=== PATIENT | male | born 1980 | race Two or more races ===

== ENCOUNTER 2024-06-24 08:54 | Inpatient (IN) | payer MEDICAID, SELFPAY ==
[2024-06-24] VITALS (9 sets, daily range): BP systolic 116–144; BP diastolic 71–89; PULSE 56–84; RESP 12–18; TEMP 36.6–37.2; O2SAT 98–100; BMI 24.1
--- NOTE | 2024-06-24 09:12 | PD.EDRME ---
Rapid Medical Screening Exam RME Arrival date/time: 06/24/24 08:54 Chief Complaint: Urogenital-Male RME Narrative: 44-year-old patient presents emergency department with complaint of black stool for the past 2 days. Patient attest to a history of alcohol use. Patient states he drinks about 20 cans of beer daily. Patient appears jaundiced. Patient currently denies any abdominal pain.
--- NOTE | 2024-06-24 09:13 | XR_ITS ---
Examination: CT abdomen with intravenous contrast CT pelvis with intravenous contrast 2-D coronal reconstructions 2-D sagittal reconstructions Date and time of exam:June 24, 2024 1050 hrs. Indications: Rectal bleeding lower pelvic pain beginning 3 days ago. CTDI: vol (mGy) 7.01 DLP: (mGycm) 370 Technique: Multiple axial sections of the abdomen and pelvis have been obtained. 64 slice high-resolution scanner used. 3 mm axial sections have been obtained, post intravenous injection 60 cc [id number] 2-D sagittal, coronal reconstructions obtained. Low dose protocols were performed. One or more of the following dose reduction techniques were used; automated exposure control, adjustment of the mA and/or KV according to patient size, use of iterative reconstruction technique. Findings: Diffuse fatty liver No gallstones Spleen not enlarged No pancreatic or adrenal mass No renal or ureteral calculi, no hydronephrosis Normal appendix No bowel obstruction Wall thickening involving the descending colon and sigmoid colon and rectum No prostatomegaly Minimal thickening of the urinary bladder wall The osseous structures are intact Impression: Significant colitis involving descending colon and sigmoid colon and rectum, consider ulcerative colitis, Crohn's disease, including proctitis pattern Normal appendix
--- NOTE | 2024-06-24 10:00 | PC.NURSE ---
Pt reports that he has been having black stools for a few days, today however he has had multiple red/bloody stools. Reports he drinks about 20 12oz beers a day, denies any previous withdrawals. Reports that his last drink was 3 days ago, pt does not currently have any withdrawl symptoms at this time. Does say that he has little abdominal pain. family at bedside attentive to pt, call davis in reach.
[2024-06-24 10:02] LABS: Basophils % (Auto) 1 % (0-2.5); Eosinophils # (Auto) 0.1 Thou/mm3 (0.0-0.5); Eosinophils % (Auto) 1 % (0-10); Hemoglobin 12.3 g/dL (13.5-16.0); Immature Granulocytes % (Auto) 0 % (0-0); Immature Granulocytes Auto 0.01 Thou/mm3 (0.00-0.00); Lymphocytes # (Auto) 1.3 Thou/mm3 (1.0-4.8); Lymphocytes % (Auto) 23 % (10-50); Mean Corpuscular HGB Conc 34.2 g/dl (31.0-37.0); Mean Corpuscular Hemoglobin 30.7 pg (25.0-35.0); Mean Corpuscular Volume 90 fL (80-100); Monocytes # (Auto) 0.5 Thou/mm3 (0.0-0.8); Monocytes % (Auto) 9 % (0-12); Neutrophils # (Auto) 3.8 Thou/mm3 (1.8-7.7); Neutrophils % (Auto) 66 % (37-80); Nucleated Red Blood Cell % 0 /100 WBC (0); Platelet Count 170 Thou/mm3 (140-440); RDW Standard Deviation 39.3 fL (35.1-43.9); Red Blood Count 4.01 Miln/mm3 (4.50-5.90); White Blood Count 5.8 Thou/mm3 (3.8-10.6)
--- NOTE | 2024-06-24 10:10 | PD.EDGIBLD ---
ED GI Bleed RME/HPI General Chief complaint: Urogenital-Male Stated complaint: Rectal Bleeding x 3 days Arrival date/time: 06/24/24 08:54 RME / HPI RME / HPI Narrative: 44-year-old patient presents emergency department with complaint of black stool for the past 2 days. Patient attest to a history of alcohol use. Patient states he drinks about 20 cans of beer daily. Patient appears jaundiced. Patient currently denies any abdominal pain. DR. HIRSCH MAIN ED EVALUATION: 44 year old male presents to the Emergency Department with complaints of black stools and a lot of red rectal bleeding as well. Symptoms are moderate. Associated symptoms include abdominal pain. He states he had similar symptoms 3 years ago, rectal bleed. Alcoholism, states in last 2-3 weeks he has been drinking 20 beers of 12oz per day. Related Data Allergies Allergy/AdvReac Type Severity Reaction Status Date / Time No Known Allergies Allergy Verified 06/24/24 08:56 Review of Systems Review of Systems Systems Reviewed: All systems reviewed, normal except as documented Narrative Review of Systems: GEN: No fever, no chills, no weight loss EYES: No discharge, no visual changes, no pain HEENT: No ear pain, no congestion, no sore throat PULM: No shortness of breath, no cough, no congestion CV: No chest pain, no dyspnea on exertion, no palpitations GI: No nausea, no vomiting, no diarrhea, + abdominal pain pain, no constipation; + black stools and a lot of red rectal bleeding : No frequency, no urgency and no dysuria MUSC/SKEL: No joint pain, no back pain SKIN: No rash PSYCH: No hallucinations, no depression HEME/LYMPH: No easy bleeding or bruising tendencies NEURO: No weakness, no headache Past Medical History Past Medical History CARDIAC: Negative Cardiac Disorders RESPIRATORY: Negative Asthma GENITOURINARY: Negative Renal Disease ENDOCRINE: Negative Diabetes Mellitus Type 2 HEMATOLOGIC: Negative Sickle Cell Disease Social History SMOKING STATUS: Never smoker SUBSTANCE USE: does not use ALCOHOL: Current ED Exam Narrative Physical exam: GENERAL APPEARANCE: Well hydrated, well nourished. Jaundice. VITALS: All vitals were reviewed and the pulse ox is 99% on room air which is normal according to my interpretation. HEENT: Normocephalic, atramatic, EOMI, EACs are patent. There is no bulge or retraction. Throat without erythema or exudate. Moist oromucosa. No jaundice NECK: Supple, no JVD or bruits. CARDIOVASCULAR: Heart regular without S3-S4 or murmur. No rubs or gallops. LUNGS/CHEST: Clear to auscultation bilaterally. No rales, rhonchi, or wheezing. Normal inspection. ABDOMEN: Patient has minimal discomfort in the epigastric area. Normal bowel sounds. No pulsatile masses. No rebound, rigidity, or guarding. No incarcerated hernia. RECTAL: Rectal exam, nurse financial services professional present at bedside, shows dark stools, guaiac positive. : Not examined. Urine is a tea color. EXTREMITIES: No edema, clubbing, or cyanosis. Intact CSM. Normal inspection and palpation. SKIN: Warm and dry without rashes. Jaundice. MUSCULOSKELETAL: No gross deformity, full ROM all extremities. Normal inspection. NEURO: Alert and oriented x3. Cranial nerves II through XII grossly intact. There are no other motor or sensory deficits noted. PSYCHIATRIC: Normal mood and affect. No psychosis. Course Quality Measures none Orders Category Date Time Status CT Screening NOW Care 06/24/24 09:14 Active Consult to Gastroenterology Stat Cons 06/24/24 15:[address] abdomen pelvis w con Stat Exams 06/24/24 09:13 Completed ABO/RH Type Stat Lab 06/24/24 09:25 Completed CBC Stat Lab 06/24/24 09:25 Completed Comprehensive Metabolic Panel Stat Lab 06/24/24 09:25 Completed Lipase Stat Lab 06/24/24 09:25 Completed PT [Prothrombin Time with INR] Stat Lab 06/24/24 09:25 Completed Urinalysis, C/S if Indicated Stat Lab 06/24/24 10:25 Completed Octreotide Acet Inj [SandoSTATIN Inj] Med 06/24/24 15:00 Discontinued 50 mcg IV X1 ONE Sodium Chloride 0.9% 1000 ml [Ns] 1,000 ml Med 06/24/24 09:14 Discontinued IV 999 mls/hr Sodium Chloride 0.9% [Ns] 100 ml Med 06/24/24 15:01 Active Octreotide Acet Inj [SandoSTATIN Inj] 1,000 mcg IV 50 mcg/hr Vital Signs Vital signs: Vital Signs Temperature 98.7 F 06/24/24 09:17 Pulse Rate 67 06/24/24 09:17 Respiratory Rate 16 06/24/24 09:17 Blood Pressure 116/76 06/24/24 09:17 Pulse Oximetry (%) 99 06/24/24 09:17 Oxygen Delivery Method Room Air 06/24/24 09:17 GI Bleed MDM Narrative MDM Narrative:: I, Tamara Mclain, am scribing for and in the presence of Dr. Hirsch. Patient is a very poor historian. What we got out of him is the story that he has been having black stool along with red blood cells. He said that he is mixing between red and black. Rectal examination was done at the presence of his nurse showing black stool guaiac was positive. CMP and lipase are negative. Liver functioning tests are elevated most likely secondary to alcoholism.. Pro time is negative. CT abdomen and pelvic was done and was read by Dr. Kulwant Cochran showing significant colitis. Please see his note. I did have a chance to review and interpret the CT as follow: No free air. No free fluid. No dilated loops of bowel gas. No evidence of obstruction. Thickened distal colon wall. 3 PM, I spoke to and discussed with Dr. Mendoza, GI specialist on-call. He recommended octreotide, clear liquid diet. He will continue to consult. 3:50 PM, I spoke to , resident of , hospitalist on-call. He agreed to assess to admit the patient for further evaluation and treatment. Patient data External records reviewed:: None (no previous visits) Clinical information provided by:: patient Social determinants that could affect healthcare access:: alcohol use Patient has the following chronic illnesses:: Alcoholism, states in last 2-3 weeks he has been drinking 20 beers of 12oz per day. Denies any surgeries, daily medications, or known allergies. How is presenting disease/condition affected by chronic disease/condition?: exacerbated by Evaluation data The following diagnostics were reviewed and interpreted by me:: lab results and radiology exam(s) Lab and/or radiology exams considered but not ordered:: none Interpretation Summary: See above under MDM narrative. RADIOLOGY Procedure(s): CT abdomen pelvis w con Accession Number(s): [id number] cc: Kulwant Cochran MD; NO PRIMARY/FAMILY,PHYSICIAN; Madelaine Randolph PA-C~ Examination: CT abdomen with intravenous contrast CT pelvis with intravenous contrast 2-D coronal reconstructions 2-D sagittal reconstructions Date and time of exam:June 24, 2024 1050 hrs. Indications: Rectal bleeding lower pelvic pain beginning 3 days ago. CTDI: vol (mGy) 7.01 DLP: (mGycm) 370 Technique: Multiple axial sections of the abdomen and pelvis have been obtained. 64 slice high-resolution scanner used. 3 mm axial sections have been obtained, post intravenous injection 60 cc [id number] 2-D sagittal, coronal reconstructions obtained. Low dose protocols were performed. One or more of the following dose reduction techniques were used; automated exposure control, adjustment of the mA and/or KV according to patient size, use of iterative reconstruction technique. Findings: Diffuse fatty liver No gallstones Spleen not enlarged No pancreatic or adrenal mass No renal or ureteral calculi, no hydronephrosis Normal appendix No bowel obstruction Wall thickening involving the descending colon and sigmoid colon and rectum No prostatomegaly Minimal thickening of the urinary bladder wall The osseous structures are intact Impression: Significant colitis involving descending colon and sigmoid colon and rectum, consider ulcerative colitis, Crohn's disease, including proctitis pattern Normal appendix Dictated By: Kulwant Cochran MD Medications / Prescriptions Medications or Prescriptions considered but not ordered:: none Medication administrations:: Medication Administration History Octreotide Acetate 1,000 mcg/ (Sodium Chloride) 102 mls @ 5.1 mls/hr IV .Q20H ONE; Protocol Stop: 06/25/24 11:00 Discontinued Medications Sodium Chloride (Ns) 1,000 mls @ 999 mls/hr IV .Q1H1M ONE Stop: 06/24/24 10:14 Last Infusion: 06/24/24 12:00 Dose: Infused Documented By: Admin: 06/24/24 10:11 Dose: 999 mls/hr Documented By: TRENT Octreotide Acetate (Octreotide Acet Inj 50 Mcg/Ml Vial) 50 mcg IV X1 ONE Stop: 06/24/24 15:01 see above Consultations Consultation(s) initiated? (list below): Yes Consultation #1 (Physician, Specialty, Details): Discussed test HPI, PMHx, lab, radiology results and/or management with Dr. Mendoza. Will consult an admission to the hospitalist. Time: 15:00 Consultation #2 (Physician, Specialty, Details): Discussed test HPI, PMHx, lab, radiology results and/or management with hospitalist. Will admit for further evaluation and management. Accepts patient for admission Time: 15:05 Diagnosis GI bleed differential diagnosis: esophageal varices, Upper gastrointestinal hemorrhage, Lower gastrointestinal hemorrhage, hematochezia and melena Most likely diagnosis given after review of the tests above:: GI bleed History of alcohol heavy consumption Admission Indicated Admission indicated?: indicated Admission Request Was there a request for admission?: Yes Admission Attestation Admission request attestation: Discussed case with [] from Hospitalist service regarding admission. Discussed patients ED course, exam findings, labs, and radiology results. The Hospitalist [agrees,declines] to accept the patient for admission. Disposition Plan Disposition Plan: Admit Discharge Plan Plan Patient Disposition: Admit Acute Care w/in Hospital Disposition Comment: Stable for admit Prescriptions/Referrals Referrals: No Primary/Family,Physician [Primary Care Provider] - In 1 week Problem List Clinical Impression: GI bleed, Alcoholism Patient/Caregiver Discharge Instructions Print Language: Tristanian Stand Alone Forms: Carlita Award Info., Patient Portal Info Letter
[2024-06-24] MEDS: SODIUM CHLORIDE 0.9% 1000 ML 1,000 ML 999 ML IV (10:11)
[2024-06-24 10:18] LABS: Alanine Aminotransferase 113 U/L (10-49); Albumin, Serum 4.8 gm/dL (3.5-5.0); Albumin/Globulin Ratio 1.7 (1.2-2.2); Alkaline Phosphatase 104 U/L (46-116); Anion Gap 9 (7-16); Aspartate Amino Transferase 163 U/L (0-34); BUN/Creatinine Ratio 30 Ratio (12-20); Bilirubin,Total 3.1 mg/dL (0.3-1.2); Blood Urea Nitrogen 18 mg/dL (9-23); Calcium 9.4 mg/dL (8.3-10.6); Calcium (Corrected) 9.4 mg/dL (8.5-10.1); Carbon Dioxide 26.9 mMol/L (20.0-31.0); Chloride 100 mMol/L (98-107); Creatinine (Component) 0.6 mg/dL (0.6-1.3); Estimated Creatinine Clearance 149.9 mL/min (>60); Globulin 2.8 gm/dL (2.3-3.5); Glucose 109 mg/dL (74-106); Lipase 29 U/L (12-53); Osmolality,Calculated 274 (275-295); Potassium 4.3 mMol/L (3.4-5.1); Prothrombin Time 11.4 Seconds (9.0-12.2); Sodium 136 mMol/L (136-145); Total Protein 7.6 gm/dL (5.7-8.2); eGFR > 60 See Note
[2024-06-24 10:37] LABS: Collection Type, Urine Voided
--- NOTE | 2024-06-24 11:26 | PRELIM_ITS ---
CT scan of the abdomen and pelvis with intravenous contrast (axial sections with sagittal and coronal reformats) June 24, 2024 at 1050 hoursClinical History: black tarry stoolsComparison: No prior st udy is available for comparison. ]Findings:Dependent atelectasis is seen at the lung bases.Fatty infi ltration of the liver is noted. The gallbladder, pancreas, spleen, kidneys and adrenals are unremarka ble.No evidence of bowel obstruction. The appendix is within normal limits (axial images 130-150/250) . There is mildly thickened/edematous colon, predominantly the descending and sigmoid colon with mura l enhancement and adjacent fat stranding.The urinary bladder is incompletely distended at the time of the examination. There is no free fluid, free air or abscess. The aorta demonstrates mild atheromat ous changes.Mild degenerative changes are identified in the spine. Impression:1. Findings are of conc renaldo for colitis of the left hemicolon, which may be of inflammatory or infectious etiology. Recommend clinical correlation and follow-up. 2. Other findings as described above. Report Electronically Sig rebecca By: Tiffanie Kee 06/24/2024 11:25:26 AM [EST]
[2024-06-24 11:42] LABS: Bilirubin,Urine Negative (Negative); Blood,Urine Negative (Negative); Clarity,Urine Clear (Clear/Hazy); Color,Urine Yellow (Lt Yel-Yel); Culture Indicated,Urine Not Indicated; Glucose, Urine Negative (Negative); Ketones,Urine Trace (Negative); Leukocyte Esterase,Urine Negative (Negative); Nitrite,Urine Negative (Negative); PH,Urine 6.5 (5.0-7.0); Protein,Urine Negative (Neg - Trace); RBC,Urine 2 /hpf (0-3); Specific Gravity,Urine 1.025 (1.001-1.035); Squamous Epithelial Cell,Urine < 1 /hpf (0-5); Urobilinogen,Urine Negative mg/dL (0.0-1.0); WBC,Urine < 1 /hpf (0-5)
--- NOTE | 2024-06-24 16:19 | XR_ITS ---
Examination: Abdomen sonogram, Limited Date and time of exam: June 24, 2024 1707 hrs. Indications: Epigastric pain rectal bleeding beginning 3 days ago Technique: Real-time blackwood scale transabdominal sonographic images of the upper abdomen obtained. Findings: Negative for gallstones Gallbladder wall 0.49 cm Common bile duct 0.5 cm no stones Pancreas obscured by bowel gas Liver 14.8 CM fatty infiltration irregular contour no focal liver lesions Normal hepatopedal portal venous flow Patent IVC Impression: Negative for gallstones Thickened gallbladder wall, suggest HIDA scan or MRCP follow-up to exclude cholecystitis
[2024-06-24] MEDS: OCTREOTIDE ACET INJ 50 mCg/ML VIAL IV (16:23)
[2024-06-24] MEDS: OCTREOTIDE ACET INJ 1,000 MCG in SODIUM CHLORIDE 0.9% 100 ML 5.1 MCG IV (16:24)
--- NOTE | 2024-06-24 16:31 | ESHP_ITS ---
Documentation for date of: 06/24/24 HPI History of Present Illness Chief complaint: Dark tarry stool History of present illness: 44 y/o M without significant PMHx presented to ED with chief complaint of dark tarry stools x 3 days. Patient also notes occasional red rectal bleeding. Patient had similar symptoms 1 year ago in [place], received an EGD at that time which showed ulcers. Patient notes that for the past 3 weeks he has been drinking 20 beers daily. States last drink was Tuesday. Denies chest pain, shortness of breath, nausea, vomiting, weakness. Endorses poor p.o. intake due to abdominal discomfort. ED COURSE: Labs significant for: Hemoglobin 12.3, T. bili 2.1, AST 163, ALT 113, ALP 104. Imaging significant for: CT showing significant colitis of the descending, sigmoid, rectum. Fatty liver. Patient received 1 L bolus normal saline and started on octreotide drip in the ED. Vital signs stable. PMH: None PSH: None SH: Endorses frequent alcohol use. Denies tobacco or illicit drug use. Allergies:?None Medications: None Review of Systems Review of Systems Systems Reviewed: All systems reviewed, normal except as documented Past Medical History Past Medical History Comments PMH COMMENT: PMH: None PSH: None SH: Endorses frequent alcohol use. Denies tobacco or illicit drug use. Allergies:?None Medications: None Exam Vital Signs Temp Pulse Resp BP Pulse Ox O2 Del Method 98.3 F 84 18 120/82 100 Room Air 06/24/24 14:28 06/24/24 16:06 06/24/24 16:06 06/24/24 16:06 06/24/24 16:06 06/24/24 16:06 Narrative Exam PE: Gen: Well-developed and well-nourished. HEENT: NCAT, PERRLA, EOMI, MMM. Scleral icterus. CVS: normal S1 and S2. RRR. No M/R/G. Resp: CTA B/L. No rhonchi, rales, crackles or wheezing. Abd: Mild abdominal distention, diffuse abdominal tenderness worse in epigastric region and left side. No fluid wave. MSK: Good ROM in BUE & BLE. No edema or rash. Neuro: CN II-XII grossly intact. Strength 5/5 in BUE & BLE. Alert and oriented x3. Psych: appropriate mood and affect. Results: Labs 06/24/24 09:25 06/24/24 09:25 Labs: Short CBC 06/24/24 Range/Units 09:25 WBC 5.8 (3.8-10.6) Thou/mm3 Hgb 12.3 L (13.5-16.0) g/dL Hct 36.0 L (41.0-53.0) % Plt Count 170 (140-440) Thou/mm3 BMP 06/24/24 09:25 Sodium 136 Potassium 4.3 Chloride 100 Carbon Dioxide 26.9 BUN 18 Creatinine 0.6 Glucose 109 H Calcium 9.4 Liver Function 06/24/24 Range/Units 09:25 Total Bilirubin 3.1 H (0.3-1.2) mg/dL AST 163 H (0-34) U/L ALT 113 H (10-49) U/L Alkaline Phosphatase 104 (46-116) U/L Albumin 4.8 (3.5-5.0) gm/dL Urine 06/24/24 Range/Units 10:25 Urine Color Yellow (Lt Yel-Yel) Urine Clarity Clear (Clear/Hazy) Urine pH 6.5 (5.0-7.0) Ur Specific [place] 1.025 (1.001-1.035) Urine Protein Negative (Neg - Trace) Urine Glucose (UA) Negative (Negative) Quality Measures Quality Measures VTE prophylaxis Medications Home Medications and Allergies Allergies Allergy/AdvReac Type Severity Reaction Status Date / Time No Known Allergies Allergy Verified 06/24/24 08:56 Visit Medications Acetaminophen (Acetaminophen 325 Mg Tablet) 650 mg PO Q6H PRN PRN Reason: Fever >101.5 Stop: 07/24/24 16:18 Hydrocodone Bitart/Acetaminophen (Hydrocodone/Apap 5/325 Tablet) 1 tab PO Q4HR PRN PRN Reason: PAIN SCALE 4-10(Mod-Sev Stop: 06/29/24 16:18 Octreotide Acetate 1,000 mcg/ (Sodium Chloride) 102 mls @ 5.1 mls/hr IV .Q20H ONE; Protocol Stop: 06/25/24 11:00 Last Admin: 06/24/24 16:24 Dose: 50 mcg/hr, 5.1 mls/hr Ondansetron HCl (Ondansetron Inj 2 Mg/Ml Inj 2 Ml) 4 mg IV Q6H PRN; Protocol PRN Reason: NAUSEA OR VOMITING Stop: 07/24/24 16:18 Pantoprazole Sodium (Pantoprazole Inj 40 Mg Vial) 40 mg IVP Q12HR KEAGAN Stop: 07/24/24 20:59 Discontinued Medications Sodium Chloride (Ns) 1,000 mls @ 999 mls/hr IV .Q1H1M ONE Stop: 06/24/24 10:14 Last Infusion: 06/24/24 12:00 Dose: Infused Octreotide Acetate (Octreotide Acet Inj 50 Mcg/Ml Vial) 50 mcg IV X1 ONE Stop: 06/24/24 15:01 Last Admin: 06/24/24 16:23 Dose: 50 mcg Assessment & Plan Plan 44 y/o M without significant PMHx presented to ED with chief complaint of dark tarry stools x 3 days, admitted for GI bleed. #GI bleed Patient arrived with chief complaint dark tarry stools for 3 days. Notes heavy alcohol use for past 3 weeks. Had similar symptoms in the past, EGD at the time showed gastric ulcers. Hemoglobin 12.3. -GI consulted, follow-up -Octreotide drip -Protonix 40 mg IV twice daily -Monitor hemoglobin closely -Tylenol and [place] as needed for pain -Zofran as needed for nausea #Alcohol use disorder #Transaminitis Patient has had 20 beers daily for the past 3 weeks. Reports last drink was on Tuesday. Exam showed scleral icterus. CT showed fatty liver. Patient elevated LFTs: T. bili 3.1, AST was 63, ALT 113. -Liver ultrasound pending, follow-up -[facility] protocol -Serum alcohol level pending -Monitor LFTs -Psychology Lecturer regarding alcohol cessation DVT prophylaxis: SCDs GI prophylaxis: Protonix Diet: N.p.o. pending GI consult Lines: Peripheral IV Code status: Full code Plan of care discussed with senior resident Dr. Booker PGY-[address] Carlo Robert MD PGY-1 Senior Resident Attestation: I discussed with and supervised the director internal audit physician involved in the care of this patient. I personally saw and examined the patient and discussed the assessment and plan with the entire medicine team, including my attending. I agree with the assessment and plan as documented above. 44-year-old male with no significant past medical history presented to the emergency department due to melena after 3 days. Patient has history of alcohol use disorder. Last known alcohol drink was 4 days ago. For the past 3 days patient has had multiple episodes of dark stools with bright red blood to it. Patient had a similar episode a year ago in [place] which is patient got an EGD and was told he had ulcers. Patient has not follow-up with any primary care doctor or GI specialist ever since. Patient works in the [employer]. Vitals, labs and imaging were reviewed. Patient will be admitted for suspected upper GI bleed we are going to start octreotide drip, Protonix were going to trend hemoglobin. Gastroenterology has been consulted. Patient also has a history of alcohol use we are going to start CIWA protocol. - Patient's care was discussed with my attending physician. Parveen Booker MD Internal Medicine PGY-3 Attending Provider Attestation/Addendum I attest that I was physically present for the evaluation, physical examination, lab and imaging review of the patient with the residents. I discussed the case with the residents and agree with the findings and plans of care as documented above. Patient is a 44 years old male with history of possible gastric ulcers and upper GI bleeding who presented to the ED with complaint of black tarry stool. Patient has a history of alcohol abuse, and has been drinking very heavily for the last few days. He had multiple episodes of dark stool with occasional bright red blood. He also admitted to an episode of coffee-ground emesis. Patient underwent EGD and [place] for similar episodes, 1 year back but has not been following his doctors. GI consulted by ED, recommended inpatient admission for GI bleeding workup and management. We will start patient on octreotide drip, IV Protonix, CIWA protocol for alcohol withdrawal. Hemoglobin level is currently stable, we will continue to trend. Starr Matos MD
[2024-06-24 17:09] LABS: Alcohol, Blood Medical < 3.0 mg/dL (0-10.0)
--- NOTE | 2024-06-24 19:34 | PD.IMCONS ---
HPI Data of Consult Requesting Physician: Starr Matos MD Primary Care Provider: Physician No Primary/Family Consult Narrative Reason for consult: Melena, hematochezia, abnormal CT AP History of present illness: 44 years old male who has a longstanding history of alcohol abuse primarily about 20 beers a day presented to the emergency room with 2 to 3-day history of melena as well as hematochezia Presenting WBC count was 5.8 hemoglobin hematocrit 12.3 and 36.0 Total bilirubin 3.1 AST ALT 163 and 113 alk phos of 104 CT scan of the abdomen pelvis done with contrast showed fatty liver inflammatory changes in the region of descending colon sigmoid colon and rectum Gallbladder ultrasound shows no gallstones thickened gallbladder wall and fatty liver cc:: cc: Starr Matos MD Review of Systems Review of Systems Systems Reviewed: All systems reviewed, normal except as documented Past Medical History Surgical History OTHER SURGICAL HX: As in the history of present illness Meds Home Medications and Allergies Allergies Allergy/AdvReac Type Severity Reaction Status Date / Time No Known Allergies Allergy Verified 06/24/24 08:56 Exam Vital Signs Temp Pulse Resp BP Pulse Ox O2 Del Method 98.9 F 62 18 140/83 H 100 Room Air 06/24/24 18:29 06/24/24 18:29 06/24/24 18:29 06/24/24 18:29 06/24/24 18:29 06/24/24 18:29 Constitutional Comments: Chronically ill-appearing Routine Respiratory Exam Comments: Normal to auscultation Routine Abdominal Exam Comments: Nontender positive bowel sounds Results Labs 06/24/24 09:25 06/24/24 09:25 Labs: Short CBC 06/24/24 Range/Units 09:25 WBC 5.8 (3.8-10.6) Thou/mm3 Hgb 12.3 L (13.5-16.0) g/dL Hct 36.0 L (41.0-53.0) % Plt Count 170 (140-440) Thou/mm3 BMP 06/24/24 09:25 Sodium 136 Potassium 4.3 Chloride 100 Carbon Dioxide 26.9 BUN 18 Creatinine 0.6 Glucose 109 H Calcium 9.4 Liver Function 06/24/24 Range/Units 09:25 Total Bilirubin 3.1 H (0.3-1.2) mg/dL AST 163 H (0-34) U/L ALT 113 H (10-49) U/L Alkaline Phosphatase 104 (46-116) U/L Albumin 4.8 (3.5-5.0) gm/dL Urine 06/24/24 Range/Units 10:25 Urine Color Yellow (Lt Yel-Yel) Urine Clarity Clear (Clear/Hazy) Urine pH 6.5 (5.0-7.0) Ur Specific [place] 1.025 (1.001-1.035) Urine Protein Negative (Neg - Trace) Urine Glucose (UA) Negative (Negative) Assessment and Plan Additional Assessment & Plan Additional Plan: # Melena # Hematochezia # Abnormal CT scan of the abdomen pelvis showing inflammatory changes in the region of descending colon sigmoid colon and rectum # Abnormal liver functions are secondary to alcohol-related liver disease and fatty liver Plan Case discussed with the Emergency room physician Octreotide infusion at 50 mcg/h after loading dose of 50 mcg IV Protonix 40 mg every 12 hours N.p.o. midnight tonight Serial CBC Fiberoptic esophagogastroduodenoscopy with possible therapeutic intervention possible biopsy under intravenous moderate sedation tentatively scheduled for tomorrow Because of the CT scan abnormalities patient will also need a fibrotic colonoscopy prior to discharge to rule out any evidence of inflammatory bowel disease or ischemic colitis Thank you once again for the opportunity to participate in the care of this patient
[2024-06-24] MEDS: PANTOPRAZOLE INJ 40 MG VIAL IVP (20:39)
[2024-06-24] MEDS: FOLIC ACID 1 MG TABLET PO (20:39)
[2024-06-24] MEDS: THIAMINE 100 MG TABLET PO (20:39)
[2024-06-24 21:22] LABS: Hematocrit 32.5 % (41.0-53.0); Hemoglobin 11.4 g/dL (13.5-16.0)
[2024-06-25] VITALS (16 sets, daily range): BP systolic 93–141; BP diastolic 51–95; PULSE 56–112; RESP 12–20; TEMP 36.3–36.8; O2SAT 96–100
[2024-06-25 05:47] LABS: Basophils # (Auto) 0.1 Thou/mm3 (0.0-0.2); Basophils % (Auto) 1 % (0-2.5); Eosinophils # (Auto) 0.2 Thou/mm3 (0.0-0.5); Eosinophils % (Auto) 4 % (0-10); Hematocrit 30.5 % (41.0-53.0); Hemoglobin 10.4 g/dL (13.5-16.0); Immature Granulocytes % (Auto) 0 % (0-0); Immature Granulocytes Auto 0.01 Thou/mm3 (0.00-0.00); Lymphocytes # (Auto) 1.6 Thou/mm3 (1.0-4.8); Lymphocytes % (Auto) 32 % (10-50); Mean Corpuscular HGB Conc 34.1 g/dl (31.0-37.0); Mean Corpuscular Hemoglobin 30.5 pg (25.0-35.0); Mean Corpuscular Volume 89 fL (80-100); Monocytes # (Auto) 0.5 Thou/mm3 (0.0-0.8); Monocytes % (Auto) 9 % (0-12); Neutrophils # (Auto) 2.7 Thou/mm3 (1.8-7.7); Neutrophils % (Auto) 54 % (37-80); Nucleated Red Blood Cell % 0 /100 WBC (0); Platelet Count 192 Thou/mm3 (140-440); RDW Standard Deviation 38.5 fL (35.1-43.9); Red Blood Count 3.41 Miln/mm3 (4.50-5.90); White Blood Count 5.1 Thou/mm3 (3.8-10.6)
[2024-06-25 06:32] LABS: Alanine Aminotransferase 98 U/L (10-49); Albumin, Serum 4.3 gm/dL (3.5-5.0); Albumin/Globulin Ratio 1.7 (1.2-2.2); Alkaline Phosphatase 84 U/L (46-116); Anion Gap 9 (7-16); Aspartate Amino Transferase 155 U/L (0-34); BUN/Creatinine Ratio 11 Ratio (12-20); Bilirubin,Total 2.3 mg/dL (0.3-1.2); Blood Urea Nitrogen 8 mg/dL (9-23); Calcium 9.2 mg/dL (8.3-10.6); Calcium (Corrected) 9.2 mg/dL (8.5-10.1); Carbon Dioxide 26.7 mMol/L (20.0-31.0); Cardiac Risk Estimate 2.9 RATIO (4.0-6.7); Chloride 99 mMol/L (98-107); Cholesterol 152 mg/dL (132-200); Creatinine (Component) 0.7 mg/dL (0.6-1.3); Estimated Creatinine Clearance 128.5 mL/min (>60); Globulin 2.6 gm/dL (2.3-3.5); Glucose 116 mg/dL (74-106); HDL Cholesterol 53 mg/dL (40-60); LDL Cholesterol,Calculated 80 mg/dL (0-130); Osmolality,Calculated 269 (275-295); Sodium 135 mMol/L (136-145); Thyroid Stimulating Hormone 1.63 uIU/mL (0.55-4.78); Total Protein 6.9 gm/dL (5.7-8.2); Triglycerides 97 mg/dL (30-150); eGFR > 60 See Note
[2024-06-25 07:15] LABS: Glucose Estimated Average 100 mg/dL (80-131); Hemoglobin A1C 5.1 % Hgb (4.8-6.0)
[2024-06-25] MEDS: PANTOPRAZOLE INJ 40 MG VIAL IVP (09:14)
--- NOTE | 2024-06-25 12:06 | PC.SS ---
Eduardo Regina a 44-year-old male admitted to NH for GI Bleed. SS conducted bedside contact with the patient to complete initial assessment and to discuss discharge planning, pt dtr translated on pt behalf. Patient confirmed demographic information. Patient identifies Brit Tovar [phone] as his surrogate decision maker. Patient resides at home with family. Pt he is able to complete all ADL?s independently, no need for any source of DME. Pt reports going to the [facility] for needs when needed but has not have been in over one year. DC options discussed pt wishes to return home. Pts family will provide transportation upon DC. No further intervention required at this time, social science professor would be available to address any further concerns.
--- NOTE | 2024-06-25 12:34 | PC.SS ---
Rounding: Pending EGD and Colonoscopy
--- NOTE | 2024-06-25 14:48 | SUR.PHASEI ---
pt received from OR in recovery bay 5. pt asleep but responds to voice, breathing unlabored on room air. v/s stable. report received from Tasia TEJEDA.
--- NOTE | 2024-06-25 15:30 | SUR.PHASEI ---
pt awake and alert, breathing unlabored on room air. v/s stable. report called to Aleta Alonso. pt will be transferred to room at this time.
--- NOTE | 2024-06-25 15:53 | ESPR_ITS ---
<Statement entered by Harvinder Tanner MD - 06/25/24 16:44> Patient was seen and examined at the bedside. Patient's OPERATOR/ASSISTANT FOREMAN reported that patient was dizzy while going to the restroom therefore PT evaluation was ordered. PT reported that patient appears to be working independently and recommended no further assistance required. GI specialist performed EGD which showed Haley-Becker tear with profound blood and recommended to keep close monitoring of H&H as the patient might need blood transfusion. Patient is also on [facility] protocol for alcohol withdrawal. Will likely follow-up with H&H at midnight as well. LFTs are downtrending. Hemoglobin currently at 10.4. Type and screen was ordered and 1 unit PRBCs prepared and will be administered as needed if hemoglobin drops below 7. No plans for colonoscopy per GI specialist. All labs and orders were reviewed. I saw and examined the patient, and I agree with current management stated by Dr Yesica MD,PGY1. Plan of care was discussed with the attending physician and resident physician. Disclaimer: Despite multiple revisions, due to the dictation software being used, the document bellow may not be free of grammatical errors including phonetic/typographic errors. However, this does not deter from our commitment to providing health care in the patient's best interest in mind. Dr. Ciro MD, PGY 2 Documentation for date of: 06/25/24 Subjective Subjective Interval history: No overnight events. Patient seen and examined at bedside. S/P EGD which showed Haley-Becker tear with significant blood pooling. Patient denies abdominal tenderness, chest pain, SOB, nausea. Endorses mild weakness. Will closely monitor H&H. Exam Vital Signs Temp Pulse Resp BP Pulse Ox O2 Del Method O2 Flow Rate 97.9 F 67 12 102/63 97 Room Air 3 06/25/24 15:20 06/25/24 15:20 06/25/24 15:20 06/25/24 15:20 06/25/24 15:20 06/25/24 07:56 06/25/24 14:30 Narrative Exam PE: Gen: Well-developed and well-nourished. HEENT: NCAT, PERRLA, EOMI, MMM. Scleral icterus. CVS: normal S1 and S2. RRR. No M/R/G. Resp: CTA B/L. No rhonchi, rales, crackles or wheezing. Abd: Mild abdominal distention, mild diffuse abdominal tenderness. MSK: Good ROM in BUE & BLE. No edema or rash. Neuro: CN II-XII grossly intact. Strength 5/5 in BUE & BLE. Alert and oriented x3. Psych: appropriate mood and affect. Objective Labs 06/25/24 16:37 06/25/24 04:14 Labs: Laboratory Results - last 24 hr 06/24/24 06/24/24 06/25/24 09:25 20:59 04:14 WBC 5.1 RBC 3.41 L Hgb 11.4 L 10.4 L Hct 32.5 L 30.5 L MCV 89 MCH 30.5 MCHC 34.1 RDW Std Deviation 38.5 Plt Count 192 Neut % (Auto) 54 Lymph % (Auto) 32 [place] % (Auto) 9 Eos % (Auto) 4 Baso % (Auto) 1 Neut # (Auto) 2.7 Lymph # (Auto) 1.6 [place] # (Auto) 0.5 Eos # (Auto) 0.2 Baso # (Auto) 0.1 Immature Gran # (Auto) 0.01 H Absolute Nucleated RBC 0.00 Immature Gran % 0 Nucleated RBC % 0 Sodium 135 L Potassium 4.0 Chloride 99 Carbon Dioxide 26.7 Anion Gap 9 BUN 8 L Creatinine 0.7 Estim Creat Clear Calc 128.5 eGFR > 60 BUN/Creatinine Ratio 11 L Glucose [address] Glu mg/dL 100 Hemoglobin A1c 5.1 Calculated Osmolality 269 L Calcium 9.2 Corrected Calcium 9.2 Total Bilirubin 2.3 H D AST 155 H ALT 98 H Alkaline Phosphatase 84 D Total Protein 6.9 Albumin 4.3 D Globulin 2.6 Albumin/Globulin Ratio 1.7 Triglycerides 97 Cholesterol 152 LDL Cholesterol, Calc 80 HDL Cholesterol 53 Cholesterol/HDL Ratio 2.9 L TSH 1.63 Ethyl Alcohol < 3.0 Blood Type A Positive Antibody Screen NEGATIVE Crossmatch See Detail Blood Bank Wristband ID Yes Quality Measures Quality Measures VTE prophylaxis Assessment & Plan Assessment Current Active Medications: Generic Name Dose Route Start Last Admin Trade Name Freq PRN Reason Stop Dose Admin Acetaminophen 650 mg 06/24/24 16:19 Acetaminophen 325 Mg Tablet PO 07/24/24 16:18 Q6H PRN Fever >101.5 Hydrocodone Bitart/Acetaminophen 1 tab 06/24/24 16:19 Hydrocodone/Apap 5/325 Tablet PO 06/29/24 16:18 Q4HR PRN PAIN SCALE 4-10(Mod-Sev Al Hydrox/Mg Hydrox/Simethicone 15 ml 06/25/24 14:45 Mg Hyd/Al Hyd/Zarina (Maalox Reg) Susp 30 Ml Udc PO 07/25/24 14:44 Q4HR KEAGAN Folic Acid 1 mg 06/24/24 21:00 06/25/24 09:14 Folic Acid 1 Mg Tablet PO 06/29/24 20:59 Not Given BID [facility] Octreotide Acetate 1,000 mcg/ 102 mls @ 5.1 mls/hr 06/25/24 14:45 Sodium Chloride IV 06/30/24 14:39 .Q20H [facility] Protocol 50 MCG/HR Pantoprazole Sodium 80 mg in 100 mls @ 400 mls/hr 06/25/24 15:00 Protonix/Ns 80mg Iv Premix IV 07/25/24 14:59 Q12H [facility] Lorazepam 0.5 mg 06/24/24 16:37 Lorazepam 0.5 Mg Tablet PO 06/29/24 16:36 Q4HR PRN CIWA Score 2-6 Lorazepam 1 mg 06/24/24 16:37 Lorazepam 0.5 Mg Tablet PO 06/29/24 16:36 Q4HR PRN CIWA SCORE 7-11 Lorazepam 2 mg 06/24/24 16:37 Lorazepam 0.5 Mg Tablet PO 06/29/24 16:36 Q4HR PRN CIWA SCORE 12-15 Lorazepam 1 mg 06/24/24 16:37 Lorazepam 2 Mg/Ml Vial IV X1 PRN Breakthrough Agitation Ondansetron HCl 4 mg 06/24/24 16:19 Ondansetron Inj 2 Mg/Ml Inj 2 Ml IV 07/24/24 16:18 Q6H PRN NAUSEA OR VOMITING Protocol Sucralfate 1 gm 06/25/24 17:00 Sucralfate Susp 0.1 Gm/Ml PO 07/25/24 16:59 QID [facility] Thiamine HCl 100 mg 06/24/24 21:00 06/25/24 09:14 Thiamine 100 Mg Tablet PO 06/29/24 20:59 Not Given BID [facility] Plan 44 y/o M without significant PMHx presented to ED with chief complaint of dark tarry stools x 3 days, admitted for GI bleed. #Haley-Becker Tear Patient arrived with chief complaint dark tarry stools for 3 days. Notes heavy alcohol use for past 3 weeks. Had similar symptoms in the past, EGD at the time showed gastric ulcers. Hemoglobin 12.3. EGD performed, showed Haley-Becker tear with significant pooling of blood. -GI consulted, appreciate recs -Octreotide drip -Protonix 80 mg IV twice daily -Maalox suspension -Carafate 1gm PO QID -Monitor hemoglobin closely -Tylenol and [place] as needed for pain -Zofran as needed for nausea #Alcohol use disorder #Transaminitis Patient has had 20 beers daily for the past 3 weeks. Reports last drink was on Tuesday. Exam showed scleral icterus. CT showed fatty liver. Patient elevated LFTs: T. bili 3.1, AST was 63, ALT 113. Liver ultrasound showed fatty liver. Serum alcohol WNL. -[facility] protocol -Monitor LFTs -Linux Administrator regarding alcohol cessation DVT prophylaxis: SCDs GI prophylaxis: Protonix Diet: N.p.o. Lines: Peripheral IV Code status: Full code Plan of care discussed with senior resident Dr. Tanner PGY-[address] Carlo Robert MD PGY-1 Attending Provider Attestation/Addendum I attest that I was physically present for the evaluation, physical examination, lab and imaging review of the patient with the residents. I discussed the case with the residents and agree with the findings and plans of care as documented above. At bedside today, patient is stated he had some dizziness while sitting up from his commode. Appears comfortable on bed, awake and alert, able to answer all questions. Underwent EGD with GI, was found to have Haley-Becker tear. Hemoglobin noted to be dropping. We will continue with Protonix, octreotide drip, monitor hemoglobin level and vitals closely and keep him NPO. We will obtain type and cross, have PRBCs ready for transfusion if hemoglobin level decreases further. CIWA protocol in place, had a CIWA score of 0 this morning, we will continue to monitor closely. Starr Matos MD
--- NOTE | 2024-06-25 16:02 | PC.PT ---
Patient just came back from a procedure. Patient states he has been ambulating in the restroom without AD. He feels a little lightheaded earlier when he ambulate but overall he is I with his functional mobility. This is confirmed by RN that patient is I with transfers and ambulation. Dr. Tanner made aware. Will cancel PT evaluation.
[2024-06-25] MEDS: SUCRALFATE SUSP 1 GM/10 ML UDC PO ×2 (16:51→20:41)
[2024-06-25] MEDS: OCTREOTIDE ACET INJ 1,000 MCG in SODIUM CHLORIDE 0.9% 100 ML 5.1 MCG IV (16:52)
[2024-06-25] MEDS: MG HYD/AL HYD/SIME (Maalox Reg) SUSP 30 ML UDC 15 ML PO ×3 (16:53→21:17)
[2024-06-25] MEDS: PANTOPRAZOLE INJ 40 MG VIAL 80 MG IVP ×2 (16:53→20:41)
[2024-06-25 16:54] LABS: Hemoglobin 8.2 g/dL (13.5-16.0)
[2024-06-25 17:57] LABS: Hematocrit 24.2 % (41.0-53.0)
[2024-06-25 17:58] LABS: Hemoglobin 8.2 g/dL (13.5-16.0)
[2024-06-25] MEDS: THIAMINE 100 MG TABLET PO (20:42)
[2024-06-25] MEDS: FOLIC ACID 1 MG TABLET PO (20:42)
[2024-06-26] VITALS (8 sets, daily range): BP systolic 96–123; BP diastolic 66–76; PULSE 61–76; RESP 16–18; TEMP 36.1–36.4; O2SAT 99; BMI 24.0
[2024-06-26 00:07] LABS: Hematocrit 23.9 % (41.0-53.0)
[2024-06-26 00:16] LABS: Hemoglobin 8.1 g/dL (13.5-16.0)
[2024-06-26] MEDS: SUCRALFATE SUSP 1 GM/10 ML UDC PO ×4 (05:11→20:09)
[2024-06-26] MEDS: MG HYD/AL HYD/SIME (Maalox Reg) SUSP 30 ML UDC 15 ML PO ×5 (05:12→21:06)
[2024-06-26 06:40] LABS: Basophils # (Auto) 0.1 Thou/mm3 (0.0-0.2); Basophils % (Auto) 1 % (0-2.5); Eosinophils # (Auto) 0.2 Thou/mm3 (0.0-0.5); Eosinophils % (Auto) 4 % (0-10); Hematocrit 23.7 % (41.0-53.0); Immature Granulocytes % (Auto) 0 % (0-0); Immature Granulocytes Auto 0.01 Thou/mm3 (0.00-0.00); Lymphocytes # (Auto) 1.5 Thou/mm3 (1.0-4.8); Lymphocytes % (Auto) 32 % (10-50); Mean Corpuscular HGB Conc 34.2 g/dl (31.0-37.0); Mean Corpuscular Hemoglobin 31.3 pg (25.0-35.0); Mean Corpuscular Volume 92 fL (80-100); Monocytes # (Auto) 0.4 Thou/mm3 (0.0-0.8); Monocytes % (Auto) 8 % (0-12); Neutrophils # (Auto) 2.6 Thou/mm3 (1.8-7.7); Neutrophils % (Auto) 55 % (37-80); Nucleated Red Blood Cell % 0 /100 WBC (0); Platelet Count 137 Thou/mm3 (140-440); Red Blood Count 2.59 Miln/mm3 (4.50-5.90); White Blood Count 4.8 Thou/mm3 (3.8-10.6)
[2024-06-26 06:46] LABS: Hemoglobin 8.1 g/dL (13.5-16.0)
[2024-06-26 07:29] LABS: Alanine Aminotransferase 93 U/L (10-49); Albumin, Serum 3.9 gm/dL (3.5-5.0); Albumin/Globulin Ratio 1.7 (1.2-2.2); Alkaline Phosphatase 65 U/L (46-116); Anion Gap 8 (7-16); Aspartate Amino Transferase 117 U/L (0-34); BUN/Creatinine Ratio 21 Ratio (12-20); Bilirubin,Total 1.2 mg/dL (0.3-1.2); Blood Urea Nitrogen 15 mg/dL (9-23); Calcium (Corrected) 9.1 mg/dL (8.5-10.1); Carbon Dioxide 28.1 mMol/L (20.0-31.0); Chloride 101 mMol/L (98-107); Creatinine (Component) 0.7 mg/dL (0.6-1.3); Estimated Creatinine Clearance 128.5 mL/min (>60); Globulin 2.3 gm/dL (2.3-3.5); Glucose 100 mg/dL (74-106); Magnesium 1.9 mg/dL (1.6-2.6); Osmolality,Calculated 274 (275-295); Phosphorous 2.5 mg/dL (2.4-5.1); Potassium 3.9 mMol/L (3.4-5.1); Sodium 137 mMol/L (136-145); Total Protein 6.2 gm/dL (5.7-8.2); eGFR > 60 See Note
[2024-06-26] MEDS: PANTOPRAZOLE INJ 40 MG VIAL 80 MG IVP ×2 (08:46→20:10)
[2024-06-26] MEDS: THIAMINE 100 MG TABLET PO ×2 (08:46→20:09)
[2024-06-26] MEDS: FOLIC ACID 1 MG TABLET PO ×2 (08:46→20:09)
[2024-06-26] MEDS: Magnesium Sulfate 1 gm Ivpb 1 GM/100 ML BAG IV (09:38)
[2024-06-26] MEDS: OCTREOTIDE ACET INJ 1,000 MCG in SODIUM CHLORIDE 0.9% 100 ML 5.1 MCG IV (12:07)
[2024-06-26 13:41] LABS: Hematocrit 23.3 % (41.0-53.0)
--- NOTE | 2024-06-26 15:48 | ESPR_ITS ---
<Statement entered by Harvinder Tanner MD - 06/26/24 18:15> Patient was seen and examined at the bedside. Patient was complaining of mild fatigue however did not have any signs symptoms of abdominal pain. Overnight patient's hemoglobin remained stable and did not drop below 7. This morning patient's hemoglobin was 8.1. Platelets were 137. GI specialist recommended to continue Protonix 80 mg IV twice daily and continue octreotide for 2 more days. He recommended to start on clear liquid and for now colonoscopy was not recommended. Will likely monitor H&H at midnight. Close monitoring of vitals including blood pressure and if hemoglobin drop below 7 will need blood transfusion. Patient CIWA score remains 0 and he did not require Ativan since admission. All labs and orders were reviewed. I saw and examined the patient, and I agree with current management stated by Dr Yesica MD,PGY1. Plan of care was discussed with the attending physician and resident physician. Disclaimer: Despite multiple revisions, due to the dictation software being used, the document bellow may not be free of grammatical errors including phonetic/typographic errors. However, this does not deter from our commitment to providing health care in the patient's best interest in mind. Dr. Ciro MD, PGY 2 Documentation for date of: 06/26/24 Subjective Subjective Interval history: No overnight events. Patient seen and examined at bedside. Notes improvement in abdominal pain, increased appetite. Hemoglobin stable. Denies weakness, lethargy. Started clear liquid diet. Exam Vital Signs Temp Pulse Resp BP Pulse Ox O2 Del Method O2 Flow Rate 97.3 F 61 16 115/66 99 Room Air 3 06/26/24 12:06/26/24 12:06/26/24 12:06/26/24 12:06/26/24 12:06/26/24 12:06/25/24 14:30 Narrative Exam PE: Gen: Well-developed and well-nourished. HEENT: NCAT, PERRLA, EOMI, MMM. Scleral icterus. CVS: normal S1 and S2. RRR. No M/R/G. Resp: CTA B/L. No rhonchi, rales, crackles or wheezing. Abd: Mild abdominal distention, no abdominal tenderness. MSK: Good ROM in BUE & BLE. No edema or rash. Neuro: CN II-XII grossly intact. Strength 5/5 in BUE & BLE. Alert and oriented x3. Psych: appropriate mood and affect. Objective Labs 06/27/24 04:42 06/27/24 04:42 Labs: Laboratory Results - last 24 hr 06/24/24 06/25/24 06/25/24 09:25 16:37 17:11 WBC RBC Hgb 8.2 L D 8.2 L Hct 24.0 L 24.2 L MCV MCH MCHC RDW Std Deviation Plt Count Neut % (Auto) Lymph % (Auto) [place] % (Auto) Eos % (Auto) Baso % (Auto) Neut # (Auto) Lymph # (Auto) [place] # (Auto) Eos # (Auto) Baso # (Auto) Immature Gran # (Auto) Absolute Nucleated RBC Immature Gran % Nucleated RBC % Sodium Potassium Chloride Carbon Dioxide Anion Gap BUN Creatinine Estim Creat Clear Calc eGFR BUN/Creatinine Ratio Glucose Calculated Osmolality Calcium Corrected Calcium Phosphorus Magnesium Total Bilirubin AST ALT Alkaline Phosphatase Total Protein Albumin Globulin Albumin/Globulin Ratio Blood Type A Positive Antibody Screen NEGATIVE Crossmatch See Detail Blood Bank Wristband ID Yes 06/25/24 06/26/24 06/26/24 23:35 04:50 13:19 WBC 4.8 RBC 2.59 L Hgb 8.1 L 8.1 L 8.0 L Hct 23.9 L 23.7 L 23.3 L MCV 92 MCH 31.3 MCHC 34.2 RDW Std Deviation 40.0 Plt Count 137 L D Neut % (Auto) 55 Lymph % (Auto) 32 [place] % (Auto) 8 Eos % (Auto) 4 Baso % (Auto) 1 Neut # (Auto) 2.6 Lymph # (Auto) 1.5 [place] # (Auto) 0.4 Eos # (Auto) 0.2 Baso # (Auto) 0.1 Immature Gran # (Auto) 0.01 H Absolute Nucleated RBC 0.00 Immature Gran % 0 Nucleated RBC % 0 Sodium 137 Potassium 3.9 Chloride 101 Carbon Dioxide 28.1 Anion Gap 8 BUN 15 Creatinine 0.7 Estim Creat Clear Calc 128.5 eGFR > 60 BUN/Creatinine Ratio 21 H Glucose 100 Calculated Osmolality 274 L Calcium 9.0 Corrected Calcium 9.1 Phosphorus 2.5 Magnesium 1.9 Total Bilirubin 1.2 D AST 117 H ALT 93 H Alkaline Phosphatase 65 D Total Protein 6.2 Albumin 3.9 Globulin 2.3 Albumin/Globulin Ratio 1.7 Blood Type Antibody Screen Crossmatch Blood Bank Wristband ID Quality Measures Quality Measures VTE prophylaxis Assessment & Plan Assessment Current Active Medications: Generic Name Dose Route Start Last Admin Trade Name Freq PRN Reason Stop Dose Admin Acetaminophen 650 mg 06/24/24 16:19 Acetaminophen 325 Mg Tablet PO 07/24/24 16:18 Q6H PRN Fever >101.5 Hydrocodone Bitart/Acetaminophen 1 tab 06/24/24 16:19 Hydrocodone/Apap 5/325 Tablet PO 06/29/24 16:18 Q4HR PRN PAIN SCALE 4-10(Mod-Sev Al Hydrox/Mg Hydrox/Simethicone 15 ml 06/25/24 14:45 06/26/24 13:22 Mg Hyd/Al Hyd/Zarina (Maalox Reg) Susp 30 Ml Udc PO 07/25/24 14:44 15 ml Q4HR KEAGAN Administration Folic Acid 1 mg 06/24/24 21:00 06/26/24 08:46 Folic Acid 1 Mg Tablet PO 06/29/24 20:59 1 mg BID KEAGAN Administration Octreotide Acetate 1,000 mcg/ 102 mls @ 5.1 mls/hr 06/25/24 14:45 06/26/24 12:07 Sodium Chloride IV 06/30/24 14:39 50 mcg/hr .Q20H KEAGAN 5.1 mls/hr Administration Protocol 50 MCG/HR Lorazepam 0.5 mg 06/24/24 16:37 Lorazepam 0.5 Mg Tablet PO 06/29/24 16:36 Q4HR PRN CIWA Score 2-6 Lorazepam 1 mg 06/24/24 16:37 Lorazepam 0.5 Mg Tablet PO 06/29/24 16:36 Q4HR PRN CIWA SCORE 7-11 Lorazepam 2 mg 06/24/24 16:37 Lorazepam 0.5 Mg Tablet PO 06/29/24 16:36 Q4HR PRN CIWA SCORE 12-15 Lorazepam 1 mg 06/24/24 16:37 Lorazepam 2 Mg/Ml Vial IV X1 PRN Breakthrough Agitation Ondansetron HCl 4 mg 06/24/24 16:19 Ondansetron Inj 2 Mg/Ml Inj 2 Ml IV 07/24/24 16:18 Q6H PRN NAUSEA OR VOMITING Protocol Pantoprazole Sodium 80 mg 06/25/24 16:45 06/26/24 08:46 Pantoprazole Inj 40 Mg Vial IVP 07/25/24 16:44 80 mg BID KEAGAN Administration Sucralfate 1 gm 06/25/24 17:00 06/26/24 12:10 Sucralfate Susp 1 Gm/10 Ml Udc PO 07/25/24 16:59 1 gm QID KEAGAN Administration Thiamine HCl 100 mg 06/24/24 21:00 06/26/24 08:46 Thiamine 100 Mg Tablet PO 06/29/24 20:59 100 mg BID KEAGAN Administration Plan 44 y/o M without significant PMHx presented to ED with chief complaint of dark tarry stools x 3 days, admitted for GI bleed. #Haley-Becker Tear Patient arrived with chief complaint dark tarry stools for 3 days. Notes heavy alcohol use for past 3 weeks. Had similar symptoms in the past, EGD at the time showed gastric ulcers. Hemoglobin 12.3. EGD performed, showed Haley-Becker tear with significant pooling of blood. Hemoglobin stabilized. -GI consulted, appreciate recs -Octreotide drip -Protonix 80 mg IV twice daily -Maalox suspension -Carafate 1gm PO QID -Monitor hemoglobin closely -Tylenol and [place] as needed for pain -Zofran as needed for nausea -clear liquid diet #Alcohol use disorder #Transaminitis Patient has had 20 beers daily for the past 3 weeks. Reports last drink was on Tuesday. Exam showed scleral icterus. CT showed fatty liver. Patient elevated LFTs: T. bili 3.1, AST was 63, ALT 113. Liver ultrasound showed fatty liver. Serum alcohol WNL. Patient has not required lorazepam during stay. -CIWA protocol -Monitor LFTs -Human Relations Teacher regarding alcohol cessation DVT prophylaxis: SCDs GI prophylaxis: Protonix Diet: Clear liquid diet Lines: Peripheral IV Code status: Full code Plan of care discussed with senior resident Dr. Tanner PGY-[address] Carlo Robert MD PGY-1 Attending Provider Attestation/Addendum I attest that I was physically present for the evaluation, physical examination, lab and imaging review of the patient with the residents. I discussed the case with the residents and agree with the findings and plans of care as documented above. At bedside today, patient appears comfortable and denies any complaints.? Has a hemoglobin of 8.1 this morning.? Discussed with GI, agreed on continuing octreotide drip, Protonix and monitoring hemoglobin closely.? Started on clear liquid diet.? If hemoglobin continues to be stable, will have discussion with GI regarding colonoscopy.? CIWA score continues to be 0. Starr Matos MD
--- NOTE | 2024-06-26 18:48 | ESPR_ITS ---
Documentation for date of: 06/26/24 Subjective Subjective Interval history: Patient evaluated Hemoglobin [place] at 8.0 and 24.3 Patient status post placement of endoclips for a large Haley-Becker tear with active bleeding So far no hematemesis Advance diet to clear liquid As did not resolve the issue of the abnormal CAT scan of the abdomen pelvis At least at the moment I will hold off doing a colonoscopy till the upper GI bleeding is completely stopped Case discussed with internal medicine team Exam Vital Signs Temp Pulse Resp BP Pulse Ox O2 Del Method O2 Flow Rate 97.3 F 64 16 96/69 99 Room Air 3 06/26/24 15:55 06/26/24 16:04 06/26/24 15:55 06/26/24 15:55 06/26/24 15:55 06/26/24 15:55 06/25/24 14:30 Objective Labs 06/26/24 13:19 06/26/24 04:50 Labs: Laboratory Results - last 24 hr 06/25/24 06/26/24 06/26/24 23:35 04:50 13:19 WBC 4.8 RBC 2.59 L Hgb 8.1 L 8.1 L 8.0 L Hct 23.9 L 23.7 L 23.3 L MCV 92 MCH 31.3 MCHC 34.2 RDW Std Deviation 40.0 Plt Count 137 L D Neut % (Auto) 55 Lymph % (Auto) 32 [place] % (Auto) 8 Eos % (Auto) 4 Baso % (Auto) 1 Neut # (Auto) 2.6 Lymph # (Auto) 1.5 [place] # (Auto) 0.4 Eos # (Auto) 0.2 Baso # (Auto) 0.1 Immature Gran # (Auto) 0.01 H Absolute Nucleated RBC 0.00 Immature Gran % 0 Nucleated RBC % 0 Sodium 137 Potassium 3.9 Chloride 101 Carbon Dioxide 28.1 Anion Gap 8 BUN 15 Creatinine 0.7 Estim Creat Clear Calc 128.5 eGFR > 60 BUN/Creatinine Ratio 21 H Glucose 100 Calculated Osmolality 274 L Calcium 9.0 Corrected Calcium 9.1 Phosphorus 2.5 Magnesium 1.9 Total Bilirubin 1.2 D AST 117 H ALT 93 H Alkaline Phosphatase 65 D Total Protein 6.2 Albumin 3.9 Globulin 2.3 Albumin/Globulin Ratio 1.7 Impressions Impression: # Large Haley-Becker tear at the GE junction requiring placement of endoclips # Acute posthemorrhagic anemia # Abnormal CT scan of the abdomen and pelvis showing inflammatory changes in the region of descending and sigmoid colon Advance to clear liquid diet If the hemoglobin hematocrit stays stable by tomorrow GoLytely prep and colonoscopy the following day Assessment & Plan A&P Narrative # Melena # Hematochezia # Abnormal CT scan of the abdomen pelvis showing inflammatory changes in the region of descending colon sigmoid colon and rectum # Abnormal liver functions are secondary to alcohol-related liver disease and fatty liver Plan Case discussed with the Emergency room physician Octreotide infusion at 50 mcg/h after loading dose of 50 mcg IV Protonix 40 mg every 12 hours N.p.o. midnight tonight Serial CBC Fiberoptic esophagogastroduodenoscopy with possible therapeutic intervention possible biopsy under intravenous moderate sedation tentatively scheduled for tomorrow Because of the CT scan abnormalities patient will also need a fibrotic colonoscopy prior to discharge to rule out any evidence of inflammatory bowel disease or ischemic colitis Thank you once again for the opportunity to participate in the care of this patient Time Spent With Patient Time: Total time spent is greater than 50% in coordination of care (as documented) at patient's floor/unit and/or counseling patient:
[2024-06-27] VITALS (7 sets, daily range): BP systolic 107–125; BP diastolic 67–77; PULSE 60–71; RESP 12–18; TEMP 36.1–36.5; O2SAT 98–100
[2024-06-27 00:10] LABS: Hemoglobin 7.6 g/dL (13.5-16.0)
[2024-06-27 00:11] LABS: Hematocrit 22.4 % (41.0-53.0)
[2024-06-27] MEDS: MG HYD/AL HYD/SIME (Maalox Reg) SUSP 30 ML UDC 15 ML PO ×5 (05:30→21:29)
[2024-06-27] MEDS: SUCRALFATE SUSP 1 GM/10 ML UDC PO ×4 (05:30→21:30)
[2024-06-27 06:45] LABS: Basophils # (Auto) 0.1 Thou/mm3 (0.0-0.2); Basophils % (Auto) 1 % (0-2.5); Eosinophils # (Auto) 0.2 Thou/mm3 (0.0-0.5); Eosinophils % (Auto) 3 % (0-10); Hematocrit 23.1 % (41.0-53.0); Immature Granulocytes % (Auto) 0 % (0-0); Immature Granulocytes Auto 0.02 Thou/mm3 (0.00-0.00); Lymphocytes # (Auto) 1.8 Thou/mm3 (1.0-4.8); Lymphocytes % (Auto) 32 % (10-50); Mean Corpuscular HGB Conc 34.2 g/dl (31.0-37.0); Mean Corpuscular Hemoglobin 31.3 pg (25.0-35.0); Mean Corpuscular Volume 92 fL (80-100); Monocytes # (Auto) 0.5 Thou/mm3 (0.0-0.8); Monocytes % (Auto) 9 % (0-12); Neutrophils # (Auto) 3.1 Thou/mm3 (1.8-7.7); Neutrophils % (Auto) 54 % (37-80); Nucleated Red Blood Cell % 0 /100 WBC (0); Platelet Count 161 Thou/mm3 (140-440); RDW Standard Deviation 40.2 fL (35.1-43.9); Red Blood Count 2.52 Miln/mm3 (4.50-5.90); White Blood Count 5.7 Thou/mm3 (3.8-10.6)
[2024-06-27 06:53] LABS: Hemoglobin 7.9 g/dL (13.5-16.0)
[2024-06-27] MEDS: OCTREOTIDE ACET INJ 1,000 MCG in SODIUM CHLORIDE 0.9% 100 ML 5.1 MCG IV (07:06)
[2024-06-27 07:18] LABS: Alanine Aminotransferase 80 U/L (10-49); Albumin, Serum 3.9 gm/dL (3.5-5.0); Albumin/Globulin Ratio 1.6 (1.2-2.2); Alkaline Phosphatase 68 U/L (46-116); Anion Gap 7 (7-16); Aspartate Amino Transferase 83 U/L (0-34); BUN/Creatinine Ratio 11 Ratio (12-20); Bilirubin,Total 0.9 mg/dL (0.3-1.2); Blood Urea Nitrogen 8 mg/dL (9-23); Calcium 9.1 mg/dL (8.3-10.6); Calcium (Corrected) 9.2 mg/dL (8.5-10.1); Carbon Dioxide 30.3 mMol/L (20.0-31.0); Chloride 102 mMol/L (98-107); Creatinine (Component) 0.7 mg/dL (0.6-1.3); Estimated Creatinine Clearance 124.1 mL/min (>60); Globulin 2.5 gm/dL (2.3-3.5); Glucose 110 mg/dL (74-106); Osmolality,Calculated 276 (275-295); Phosphorous 2.7 mg/dL (2.4-5.1); Sodium 139 mMol/L (136-145); Total Protein 6.4 gm/dL (5.7-8.2); eGFR > 60 See Note
[2024-06-27] MEDS: FOLIC ACID 1 MG TABLET PO ×2 (09:33→21:30)
[2024-06-27] MEDS: THIAMINE 100 MG TABLET PO ×2 (09:33→21:30)
[2024-06-27] MEDS: PANTOPRAZOLE INJ 40 MG VIAL 80 MG IVP ×2 (09:33→21:27)
--- NOTE | 2024-06-27 09:39 | PC.SS ---
SS follow up note; Patient is on Octriotide drip, will complete 5 days tomorrow. Diet being advanced.
--- NOTE | 2024-06-27 11:05 | PD.IMPROG ---
Documentation for date of: 06/27/24 Subjective Subjective Interval history: Hemoglobin hematocrit 7.9 and 23.1 Tolerating liquid diet No further hematemesis Because of the CAT scan abnormalities schedule the patient for colonoscopy with possible biopsies after GoLytely prep Exam Vital Signs Temp Pulse Resp BP Pulse Ox O2 Del Method O2 Flow Rate 97.0 F 63 12 120/76 99 Room Air 3 06/27/24 08:00 06/27/24 08:00 06/27/24 08:00 06/27/24 08:00 06/27/24 08:00 06/27/24 08:00 06/25/24 14:30 Objective Labs 06/27/24 04:42 06/27/24 04:42 Labs: Laboratory Results - last 24 hr 06/24/24 06/26/24 06/26/24 09:25 13:19 23:39 WBC RBC Hgb 8.0 L 7.6 L Hct 23.3 L 22.4 L MCV MCH MCHC RDW Std Deviation Plt Count Neut % (Auto) Lymph % (Auto) [place] % (Auto) Eos % (Auto) Baso % (Auto) Neut # (Auto) Lymph # (Auto) [place] # (Auto) Eos # (Auto) Baso # (Auto) Immature Gran # (Auto) Absolute Nucleated RBC Immature Gran % Nucleated RBC % Sodium Potassium Chloride Carbon Dioxide Anion Gap BUN Creatinine Estim Creat Clear Calc eGFR BUN/Creatinine Ratio Glucose Calculated Osmolality Calcium Corrected Calcium Phosphorus Magnesium Total Bilirubin AST ALT Alkaline Phosphatase Total Protein Albumin Globulin Albumin/Globulin Ratio Crossmatch See Detail 06/27/24 04:42 WBC 5.7 RBC 2.52 L Hgb 7.9 L Hct 23.1 L MCV 92 MCH 31.3 MCHC 34.2 RDW Std Deviation 40.2 Plt Count 161 Neut % (Auto) 54 Lymph % (Auto) 32 [place] % (Auto) 9 Eos % (Auto) 3 Baso % (Auto) 1 Neut # (Auto) 3.1 Lymph # (Auto) 1.8 [place] # (Auto) 0.5 Eos # (Auto) 0.2 Baso # (Auto) 0.1 Immature Gran # (Auto) 0.02 H Absolute Nucleated RBC 0.00 Immature Gran % 0 Nucleated RBC % 0 Sodium 139 Potassium 4.0 Chloride 102 Carbon Dioxide 30.3 Anion Gap 7 BUN 8 L Creatinine 0.7 Estim Creat Clear Calc 124.1 eGFR > 60 BUN/Creatinine Ratio 11 L Glucose 110 H Calculated Osmolality 276 Calcium 9.1 Corrected Calcium 9.2 Phosphorus 2.7 Magnesium 2.0 Total Bilirubin 0.9 AST 83 H ALT 80 H Alkaline Phosphatase 68 Total Protein 6.4 Albumin 3.9 Globulin 2.5 Albumin/Globulin Ratio 1.6 Crossmatch Impressions Impression: # Gastritis # Haley-Becker tear requiring endoscopic intervention Abnormal CT scan of the abdomen pelvis schedule colonoscopy with biopsies of the GoLytely prep# Assessment & Plan A&P Narrative # Melena # Hematochezia # Abnormal CT scan of the abdomen pelvis showing inflammatory changes in the region of descending colon sigmoid colon and rectum # Abnormal liver functions are secondary to alcohol-related liver disease and fatty liver Plan Case discussed with the Emergency room physician Octreotide infusion at 50 mcg/h after loading dose of 50 mcg IV Protonix 40 mg every 12 hours N.p.o. midnight tonight Serial CBC Fiberoptic esophagogastroduodenoscopy with possible therapeutic intervention possible biopsy under intravenous moderate sedation tentatively scheduled for tomorrow Because of the CT scan abnormalities patient will also need a fibrotic colonoscopy prior to discharge to rule out any evidence of inflammatory bowel disease or ischemic colitis Thank you once again for the opportunity to participate in the care of this patient Time Spent With Patient Time: Total time spent is greater than 50% in coordination of care (as documented) at patient's floor/unit and/or counseling patient:
[2024-06-27] MEDS: NA SU/NAHCO3/KC/PEG (Golytely) 4,000 ML BTL 4000 ML PO (12:28)
--- NOTE | 2024-06-27 14:35 | ESPR_ITS ---
<Statement entered by Harvinder Tanner MD - 06/27/24 15:17> Patient was seen and examined at the bedside. No acute overnight events were reported. Hemoglobin stable at 7.9. Patient denied any bleeding episode. Will continue with octreotide and Protonix recommended by GI specialist and he recommended that we will likely go for colonoscopy once patient is cleared as he was only on clear liquid diet which he tolerated well. Patient is currently on GoLytely prep we will continue with that and wait on colonoscopy. LFTs downtrending. Rest of the labs showing stable hemoglobin with no SMOOTH as kidney functions are stable. Patient was updated regarding the plan. All labs and orders were reviewed. I saw and examined the patient, and I agree with current management stated by Dr Yesica MD,PGY1. Plan of care was discussed with the attending physician and resident physician. Disclaimer: Despite multiple revisions, due to the dictation software being used, the document bellow may not be free of grammatical errors including phonetic/typographic errors. However, this does not deter from our commitment to providing health care in the patient's best interest in mind. Dr. Ciro MD, PGY 2 Documentation for date of: 06/27/24 Subjective Subjective Interval history: No overnight events. Patient seen and examined at bedside. Patient reports feeling well. Tolerating clear liquid diet, no nausea or pain with eating. Still having small amounts of blood in bowel movements. Patient started GoLytely prep, plan for colonoscopy. Exam Vital Signs Temp Pulse Resp BP Pulse Ox O2 Del Method O2 Flow Rate 97.0 F 64 12 112/67 99 Room Air 3 06/27/24 12:06/27/24 12:06/27/24 12:06/27/24 12:06/27/24 12:06/27/24 12:06/25/24 14:30 Narrative Exam PE: Gen: Well-developed and well-nourished. HEENT: NCAT, PERRLA, EOMI, MMM. Scleral icterus. CVS: normal S1 and S2. RRR. No M/R/G. Resp: CTA B/L. No rhonchi, rales, crackles or wheezing. Abd: Mild abdominal distention, mild abdominal tenderness. MSK: Good ROM in BUE & BLE. No edema or rash. Neuro: CN II-XII grossly intact. Strength 5/5 in BUE & BLE. Alert and oriented x3. Psych: appropriate mood and affect. Objective Labs 06/29/24 09:20 06/29/24 05:32 Labs: Laboratory Results - last 24 hr 06/24/24 06/26/24 06/27/24 09:25 23:39 04:42 WBC 5.7 RBC 2.52 L Hgb 7.6 L 7.9 L Hct 22.4 L 23.1 L MCV 92 MCH 31.3 MCHC 34.2 RDW Std Deviation 40.2 Plt Count 161 Neut % (Auto) 54 Lymph % (Auto) 32 [place] % (Auto) 9 Eos % (Auto) 3 Baso % (Auto) 1 Neut # (Auto) 3.1 Lymph # (Auto) 1.8 [place] # (Auto) 0.5 Eos # (Auto) 0.2 Baso # (Auto) 0.1 Immature Gran # (Auto) 0.02 H Absolute Nucleated RBC 0.00 Immature Gran % 0 Nucleated RBC % 0 Sodium 139 Potassium 4.0 Chloride 102 Carbon Dioxide 30.3 Anion Gap 7 BUN 8 L Creatinine 0.7 Estim Creat Clear Calc 124.1 eGFR > 60 BUN/Creatinine Ratio 11 L Glucose 110 H Calculated Osmolality 276 Calcium 9.1 Corrected Calcium 9.2 Phosphorus 2.7 Magnesium 2.0 Total Bilirubin 0.9 AST 83 H ALT 80 H Alkaline Phosphatase 68 Total Protein 6.4 Albumin 3.9 Globulin 2.5 Albumin/Globulin Ratio 1.6 Crossmatch See Detail Quality Measures Quality Measures VTE prophylaxis Assessment & Plan Assessment Current Active Medications: Generic Name Dose Route Start Last Admin Trade Name [place] PRN Reason Stop Dose Admin Acetaminophen 650 mg 06/24/24 16:19 Acetaminophen 325 Mg Tablet PO 07/24/24 16:18 Q6H PRN Fever >101.5 Hydrocodone Bitart/Acetaminophen 1 tab 06/24/24 16:19 Hydrocodone/Apap 5/325 Tablet PO 06/29/24 16:18 Q4HR PRN PAIN SCALE 4-10(Mod-Sev Al Hydrox/Mg Hydrox/Simethicone 15 ml 06/25/24 14:45 06/27/24 14:03 Mg Hyd/Al Hyd/Zarina (Maalox Reg) Susp 30 Ml Udc PO 07/25/24 14:44 15 ml Q4HR KEAGAN Administration Folic Acid 1 mg 06/24/24 21:00 06/27/24 09:33 Folic Acid 1 Mg Tablet PO 06/29/24 20:59 1 mg BID KEAGAN Administration Octreotide Acetate 1,000 mcg/ 102 mls @ 5.1 mls/hr 06/25/24 14:45 06/27/24 07:06 Sodium Chloride IV 06/30/24 14:39 50 mcg/hr .Q20H KEAGAN 5.1 mls/hr Administration Protocol 50 MCG/HR Lorazepam 0.5 mg 06/24/24 16:37 Lorazepam 0.5 Mg Tablet PO 06/29/24 16:36 Q4HR PRN CIWA Score 2-6 Lorazepam 1 mg 06/24/24 16:37 Lorazepam 0.5 Mg Tablet PO 06/29/24 16:36 Q4HR PRN CIWA SCORE 7-11 Lorazepam 2 mg 06/24/24 16:37 Lorazepam 0.5 Mg Tablet PO 06/29/24 16:36 Q4HR PRN CIWA SCORE 12-15 Lorazepam 1 mg 06/24/24 16:37 Lorazepam 2 Mg/Ml Vial IV X1 PRN Breakthrough Agitation Ondansetron HCl 4 mg 06/24/24 16:19 Ondansetron Inj 2 Mg/Ml Inj 2 Ml IV 07/24/24 16:18 Q6H PRN NAUSEA OR VOMITING Protocol Pantoprazole Sodium 80 mg 06/25/24 16:45 06/27/24 09:33 Pantoprazole Inj 40 Mg Vial IVP 07/25/24 16:44 80 mg BID KEAGAN Administration Sucralfate 1 gm 06/25/24 17:00 06/27/24 12:29 Sucralfate Susp 1 Gm/10 Ml Udc PO 07/25/24 16:59 1 gm QID KEAGAN Administration Thiamine HCl 100 mg 06/24/24 21:00 06/27/24 09:33 Thiamine 100 Mg Tablet PO 06/29/24 20:59 100 mg BID KEAGAN Administration Plan 44 y/o M without significant PMHx presented to ED with chief complaint of dark tarry stools x 3 days, admitted for GI bleed. #Haley-Becker Tear Patient arrived with chief complaint dark tarry stools for 3 days. Notes heavy alcohol use for past 3 weeks. Had similar symptoms in the past, EGD at the time showed gastric ulcers. Hemoglobin 12.3. EGD performed, showed Haley-Becker tear with significant pooling of blood. Hemoglobin stabilized. -GI consulted, appreciate recs -Octreotide drip -Protonix 80 mg IV twice daily -Maalox suspension -Carafate 1gm PO QID -Monitor hemoglobin closely -Tylenol and [place] as needed for pain -Zofran as needed for nausea -clear liquid diet #Colitis Patient had significant colitis of sigmoid colon, descending colon, rectum seen on CT imaging. GI is aware and following. -GoLytely prep -Plan for colonoscopy #Alcohol use disorder #Transaminitis Patient has had 20 beers daily for the past 3 weeks. Reports last drink was on Tuesday. Exam showed scleral icterus. CT showed fatty liver. Patient elevated LFTs: T. bili 3.1, AST was 63, ALT 113. Liver ultrasound showed fatty liver. Serum alcohol WNL. Patient has not required lorazepam during stay. LFTs downtrending. -[facility] protocol -Monitor LFTs -[employer] Technician regarding alcohol cessation DVT prophylaxis: SCDs GI prophylaxis: Protonix Diet: Clear liquid diet Lines: Peripheral IV Code status: Full code Plan of care discussed with senior resident Dr. Tanner PGY-[address] Carlo Robert MD PGY-1 Attending Provider Attestation/Addendum I attest that I was physically present for the evaluation, physical examination, lab and imaging review of the patient with the residents. I discussed the case with the residents and agree with the findings and plans of care as documented above. Starr Matos MD
[2024-06-28] VITALS (18 sets, daily range): BP systolic 93–139; BP diastolic 61–86; PULSE 52–93; RESP 12–18; TEMP 35.9–36.8; O2SAT 95–100
[2024-06-28] MEDS: MG HYD/AL HYD/SIME (Maalox Reg) SUSP 30 ML UDC 15 ML PO ×3 (02:33→21:35)
[2024-06-28] MEDS: OCTREOTIDE ACET INJ 1,000 MCG in SODIUM CHLORIDE 0.9% 100 ML 5.1 MCG IV ×2 (02:33→23:02)
[2024-06-28 06:15] LABS: Basophils % (Auto) 1 % (0-2.5); Eosinophils # (Auto) 0.2 Thou/mm3 (0.0-0.5); Eosinophils % (Auto) 4 % (0-10); Hematocrit 23.4 % (41.0-53.0); Immature Granulocytes % (Auto) 0 % (0-0); Immature Granulocytes Auto 0.01 Thou/mm3 (0.00-0.00); Lymphocytes # (Auto) 1.5 Thou/mm3 (1.0-4.8); Lymphocytes % (Auto) 28 % (10-50); Mean Corpuscular HGB Conc 34.2 g/dl (31.0-37.0); Mean Corpuscular Hemoglobin 31.6 pg (25.0-35.0); Mean Corpuscular Volume 93 fL (80-100); Monocytes # (Auto) 0.6 Thou/mm3 (0.0-0.8); Monocytes % (Auto) 11 % (0-12); Neutrophils % (Auto) 57 % (37-80); Nucleated Red Blood Cell % 0 /100 WBC (0); Platelet Count 169 Thou/mm3 (140-440); RDW Standard Deviation 41.2 fL (35.1-43.9); Red Blood Count 2.53 Miln/mm3 (4.50-5.90); White Blood Count 5.3 Thou/mm3 (3.8-10.6)
[2024-06-28] MEDS: SUCRALFATE SUSP 1 GM/10 ML UDC PO ×2 (06:17→21:35)
[2024-06-28] MEDS: NA SU/NAHCO3/KC/PEG (Golytely) 4,000 ML BTL 4000 ML PO (06:30)
[2024-06-28 06:45] LABS: Alanine Aminotransferase 73 U/L (10-49); Albumin, Serum 4.1 gm/dL (3.5-5.0); Albumin/Globulin Ratio 1.8 (1.2-2.2); Alkaline Phosphatase 70 U/L (46-116); Anion Gap 7 (7-16); Aspartate Amino Transferase 60 U/L (0-34); BUN/Creatinine Ratio 9 Ratio (12-20); Bilirubin,Total 0.9 mg/dL (0.3-1.2); Blood Urea Nitrogen 6 mg/dL (9-23); Calcium 9.2 mg/dL (8.3-10.6); Calcium (Corrected) 9.2 mg/dL (8.5-10.1); Carbon Dioxide 31.7 mMol/L (20.0-31.0); Chloride 101 mMol/L (98-107); Creatinine (Component) 0.7 mg/dL (0.6-1.3); Estimated Creatinine Clearance 124.1 mL/min (>60); Globulin 2.3 gm/dL (2.3-3.5); Glucose 111 mg/dL (74-106); Osmolality,Calculated 278 (275-295); Potassium 3.9 mMol/L (3.4-5.1); Sodium 140 mMol/L (136-145); Total Protein 6.4 gm/dL (5.7-8.2); eGFR > 60 See Note
[2024-06-28] MEDS: FOLIC ACID 1 MG TABLET PO ×2 (08:42→21:35)
[2024-06-28] MEDS: THIAMINE 100 MG TABLET PO ×2 (08:42→21:35)
[2024-06-28] MEDS: PANTOPRAZOLE INJ 40 MG VIAL 80 MG IVP ×2 (08:42→21:36)
[2024-06-28 09:47] LABS: Phosphorous 3.2 mg/dL (2.4-5.1)
--- NOTE | 2024-06-28 13:54 | PC.SS ---
SS follow up note; Patient is pending a colonoscopy.
--- NOTE | 2024-06-28 14:39 | ESPR_ITS ---
<Statement entered by Harvinder Tanner MD - 06/28/24 22:20> Patient was seen and examined at the bedside. Patient denied any abdominal pain and reported that he does not notice any blood in the stool. No complaint of nausea or vomiting. CIWA has been 0. Patient is currently pending for colonoscopy and is almost clear on GoLytely prep. Patient needs octreotide for 1 more day to complete 5-day course. Protonix has been continued as 80 mg IV twice daily and hemoglobin remained stable. No acute overnight events were reported. Hemoglobin at 8.0. Will likely follow on colonoscopy and follow-up GI recommendations. All labs and orders were reviewed. I saw and examined the patient, and I agree with current management stated by Dr Yesica MD,PGY1. Plan of care was discussed with the attending physician and resident physician. Disclaimer: Despite multiple revisions, due to the dictation software being used, the document bellow may not be free of grammatical errors including phonetic/typographic errors. However, this does not deter from our commitment to providing health care in the patient's best interest in mind. Dr. Ciro MD, PGY 2 Documentation for date of: 06/28/24 Subjective Subjective Interval history: No overnight events. Patient seen and examined at bedside. Doing well, denies abdominal pain, nausea, vomiting, and bloody stool. Plan for colonoscopy tonight, possible discharge tomorrow. Exam Vital Signs Temp Pulse Resp BP Pulse Ox O2 Del Method O2 Flow Rate 97.3 F 54 L 16 128/72 97 Room Air 3 06/28/24 12:06/28/24 12:06/28/24 12:06/28/24 12:06/28/24 12:06/28/24 12:06/25/24 14:30 Narrative Exam PE: Gen: Well-developed and well-nourished. HEENT: NCAT, PERRLA, EOMI, MMM. Scleral icterus. CVS: normal S1 and S2. RRR. No M/R/G. Resp: CTA B/L. No rhonchi, rales, crackles or wheezing. Abd: No abdominal distention, no abdominal tenderness. MSK: Good ROM in BUE & BLE. No edema or rash. Neuro: CN II-XII grossly intact. Strength 5/5 in BUE & BLE. Alert and oriented x3. Psych: appropriate mood and affect. Objective Labs 06/28/24 04:29 06/28/24 04:29 Labs: Laboratory Results - last 24 hr 06/24/24 06/28/24 06/28/24 09: 04:29 04:29 WBC 5.3 RBC 2.53 L Hgb 8.0 L Hct 23.4 L MCV 93 MCH 31.6 MCHC 34.2 RDW Std Deviation 41.2 Plt Count 169 Neut % (Auto) 57 Lymph % (Auto) 28 [place] % (Auto) 11 Eos % (Auto) 4 Baso % (Auto) 1 Neut # (Auto) 3.0 Lymph # (Auto) 1.5 [place] # (Auto) 0.6 Eos # (Auto) 0.2 Baso # (Auto) 0.0 Immature Gran # (Auto) 0.01 H Absolute Nucleated RBC 0.00 Immature Gran % 0 Nucleated RBC % 0 Sodium 140 Potassium 3.9 Chloride 101 Carbon Dioxide 31.7 H Anion Gap 7 BUN 6 L Creatinine 0.7 Estim Creat Clear Calc 124.1 eGFR > 60 BUN/Creatinine Ratio 9 L Glucose 111 H Calculated Osmolality 278 Calcium 9.2 Corrected Calcium 9.2 Phosphorus Cancelled 3.2 Magnesium Cancelled Total Bilirubin AST ALT Alkaline Phosphatase Total Protein Albumin Globulin Albumin/Globulin Ratio Crossmatch See Detail 06/28/24 04:29 WBC RBC Hgb Hct MCV MCH MCHC RDW Std Deviation Plt Count Neut % (Auto) Lymph % (Auto) [place] % (Auto) Eos % (Auto) Baso % (Auto) Neut # (Auto) Lymph # (Auto) [place] # (Auto) Eos # (Auto) Baso # (Auto) Immature Gran # (Auto) Absolute Nucleated RBC Immature Gran % Nucleated RBC % Sodium Potassium Chloride Carbon Dioxide Anion Gap BUN Creatinine Estim Creat Clear Calc eGFR BUN/Creatinine Ratio Glucose Calculated Osmolality Calcium Corrected Calcium Phosphorus Magnesium 2.0 Total Bilirubin 0.9 AST 60 H ALT 73 H Alkaline Phosphatase 70 Total Protein 6.4 Albumin 4.1 Globulin 2.3 Albumin/Globulin Ratio 1.8 Crossmatch Quality Measures Quality Measures VTE prophylaxis Assessment & Plan Assessment Current Active Medications: Generic Name Dose Route Start Last Admin Trade Name Freq PRN Reason Stop Dose Admin Acetaminophen 650 mg 06/24/24 16:19 Acetaminophen 325 Mg Tablet PO 07/24/24 16:18 Q6H PRN Fever >101.5 Hydrocodone Bitart/Acetaminophen 1 tab 06/24/24 16:19 Hydrocodone/Apap 5/325 Tablet PO 06/29/24 16:18 Q4HR PRN PAIN SCALE 4-10(Mod-Sev Al Hydrox/Mg Hydrox/Simethicone 15 ml 06/25/24 14:45 06/28/24 10:30 Mg Hyd/Al Hyd/Zarina (Maalox Reg) Susp 30 Ml Udc PO 07/25/24 14:44 Not Given Q4HR KEAGAN Folic Acid 1 mg 06/24/24 21:00 06/28/24 08:42 Folic Acid 1 Mg Tablet PO 06/29/24 20:59 1 mg BID KEAGAN Administration Octreotide Acetate 1,000 mcg/ 102 mls @ 5.1 mls/hr 06/25/24 14:45 06/28/24 02:33 Sodium Chloride IV 06/30/24 14:39 50 mcg/hr .Q20H KEAGAN 5.1 mls/hr Administration Protocol 50 MCG/HR Lorazepam 0.5 mg 06/24/24 16:37 Lorazepam 0.5 Mg Tablet PO 06/29/24 16:36 Q4HR PRN CIWA Score 2-6 Lorazepam 1 mg 06/24/24 16:37 Lorazepam 0.5 Mg Tablet PO 06/29/24 16:36 Q4HR PRN CIWA SCORE 7-11 Lorazepam 2 mg 06/24/24 16:37 Lorazepam 0.5 Mg Tablet PO 06/29/24 16:36 Q4HR PRN CIWA SCORE 12-15 Lorazepam 1 mg 06/24/24 16:37 Lorazepam 2 Mg/Ml Vial IV X1 PRN Breakthrough Agitation Ondansetron HCl 4 mg 06/24/24 16:19 Ondansetron Inj 2 Mg/Ml Inj 2 Ml IV 07/24/24 16:18 Q6H PRN NAUSEA OR VOMITING Protocol Pantoprazole Sodium 80 mg 06/25/24 16:45 06/28/24 08:42 Pantoprazole Inj 40 Mg Vial IVP 07/25/24 16:44 80 mg BID KEAGAN Administration Sucralfate 1 gm 06/25/24 17:00 06/28/24 12:08 Sucralfate Susp 1 Gm/10 Ml Udc PO 07/25/24 16:59 Not Given QID KEAGAN Thiamine HCl 100 mg 06/24/24 21:00 06/28/24 08:42 Thiamine 100 Mg Tablet PO 06/29/24 20:59 100 mg BID KEAGAN Administration Plan 44 y/o M without significant PMHx presented to ED with chief complaint of dark tarry stools x 3 days, admitted for GI bleed. #Haley-Becker Tear Patient arrived with chief complaint dark tarry stools for 3 days. Notes heavy alcohol use for past 3 weeks. Had similar symptoms in the past, EGD at the time showed gastric ulcers. Hemoglobin 12.3. EGD performed, showed Haley-Becker tear with significant pooling of blood. Hemoglobin stabilized. -GI consulted, appreciate recs -Octreotide drip, 06/24-06/29 -Protonix 80 mg IV twice daily -Maalox suspension -Carafate 1gm PO QID -Monitor hemoglobin closely -Tylenol and [place] as needed for pain -Zofran as needed for nausea -clear liquid diet #Colitis Patient had significant colitis of sigmoid colon, descending colon, rectum seen on CT imaging. GI is aware and following. -GoLytely prep -Plan for colonoscopy tonight #Alcohol use disorder #Transaminitis Patient has had 20 beers daily for the past 3 weeks. Reports last drink was on Tuesday. Exam showed scleral icterus. CT showed fatty liver. Patient elevated LFTs: T. bili 3.1, AST was 63, ALT 113. Liver ultrasound showed fatty liver. Serum alcohol WNL. Patient has not required lorazepam during stay. LFTs downtrending. -[facility] protocol -Monitor LFTs -[employer] regarding alcohol cessation DVT prophylaxis: SCDs GI prophylaxis: Protonix Diet: Clear liquid diet Lines: Peripheral IV Code status: Full code Plan of care discussed with senior resident Dr. Tanner PGY-[address] Amador. Pan Robert MD PGY-1 Attending Provider Attestation/Addendum I have discussed and was present for the essential components of the history, physical examination, diagnosis, and treatment plan with the resident. I agree with the patient's care as documented by the resident and amended herein by me. Adam Amador, DO. Patient seen and evaluated this AM. No acute events overnight, hemoglobin stable at 8. Will continue octreotide and Protonix, colonoscopy scheduled for today, patient is tolerated GoLytely prep well. GI consulted, appreciate recommendations. Likely DC in 1 to 2 days pending specialist recommendations. Although this document has been carefully reviewed, there may still be some phonetic and other typographical errors. These errors are purely grammatical due to imperfections in the software program and should not be construed in any way to compromise the substance of the patient's medical care during this visit.
--- NOTE | 2024-06-28 19:41 | PC.NURSE ---
TO OR FOR COLONOSCOPY
--- NOTE | 2024-06-28 20:48 | SUR.PHASEI ---
Pt. arrived to recovery via jitendra, VSS, lung sounds clear, equal expansion mira., no c/o pain or nausea at this time, pt. responds to verbal commands, IV flushed and patent, report received from Rosa TEJEDA.
--- NOTE | 2024-06-28 21:11 | SUR.PHASEI ---
Called and gave report on pt. s/p procedure to Dahlia TEJEDA.
--- NOTE | 2024-06-28 21:20 | SUR.PHASEI ---
Pt. transferred to room 365 via BLANCA ham, no c/o pain or nausea at this time. Dahlia TEJEDA assumed care of pt.
[2024-06-29] VITALS: BP 99/62; PULSE 55; PULSE 58; RESP 17; TEMP 36.4; O2SAT 98
[2024-06-29] MEDS: MG HYD/AL HYD/SIME (Maalox Reg) SUSP 30 ML UDC 15 ML PO ×4 (01:48→14:05)
[2024-06-29 04:00] VITALS: BP 103/60; PULSE 54; PULSE 77; RESP 17; TEMP 36.1; O2SAT 98
[2024-06-29] MEDS: SUCRALFATE SUSP 1 GM/10 ML UDC PO ×2 (05:11→11:43)
[2024-06-29 05:43] LABS: Basophils # (Auto) 0.1 Thou/mm3 (0.0-0.2); Basophils % (Auto) 1 % (0-2.5); Eosinophils # (Auto) 0.2 Thou/mm3 (0.0-0.5); Eosinophils % (Auto) 3 % (0-10); Immature Granulocytes % (Auto) 1 % (0-0); Immature Granulocytes Auto 0.03 Thou/mm3 (0.00-0.00); Lymphocytes # (Auto) 1.4 Thou/mm3 (1.0-4.8); Lymphocytes % (Auto) 27 % (10-50); Mean Corpuscular HGB Conc 34.1 g/dl (31.0-37.0); Mean Corpuscular Hemoglobin 31.5 pg (25.0-35.0); Mean Corpuscular Volume 92 fL (80-100); Monocytes # (Auto) 0.6 Thou/mm3 (0.0-0.8); Monocytes % (Auto) 11 % (0-12); Neutrophils % (Auto) 58 % (37-80); Nucleated Red Blood Cell % 0 /100 WBC (0); Platelet Count 229 Thou/mm3 (140-440); RDW Standard Deviation 43.8 fL (35.1-43.9); Red Blood Count 2.38 Miln/mm3 (4.50-5.90); White Blood Count 5.2 Thou/mm3 (3.8-10.6)
[2024-06-29 05:53] LABS: Hemoglobin 7.5 g/dL (13.5-16.0)
[2024-06-29 06:28] LABS: Alanine Aminotransferase 64 U/L (10-49); Albumin, Serum 3.9 gm/dL (3.5-5.0); Albumin/Globulin Ratio 1.8 (1.2-2.2); Alkaline Phosphatase 68 U/L (46-116); Anion Gap 6 (7-16); Aspartate Amino Transferase 56 U/L (0-34); BUN/Creatinine Ratio 9 Ratio (12-20); Bilirubin,Total 0.7 mg/dL (0.3-1.2); Blood Urea Nitrogen 6 mg/dL (9-23); Calcium 8.9 mg/dL (8.3-10.6); Carbon Dioxide 30.1 mMol/L (20.0-31.0); Chloride 101 mMol/L (98-107); Creatinine (Component) 0.7 mg/dL (0.6-1.3); Estimated Creatinine Clearance 124.1 mL/min (>60); Globulin 2.2 gm/dL (2.3-3.5); Glucose 103 mg/dL (74-106); Osmolality,Calculated 271 (275-295); Phosphorous 4.4 mg/dL (2.4-5.1); Potassium 3.5 mMol/L (3.4-5.1); Sodium 137 mMol/L (136-145); Total Protein 6.1 gm/dL (5.7-8.2); eGFR > 60 See Note
[2024-06-29 08:00] VITALS: BP 99/59; PULSE 89; RESP 12; TEMP 36.4; O2SAT 98
[2024-06-29] MEDS: FOLIC ACID 1 MG TABLET PO (09:27)
[2024-06-29] MEDS: THIAMINE 100 MG TABLET PO (09:27)
[2024-06-29] MEDS: PANTOPRAZOLE INJ 40 MG VIAL 80 MG IVP (09:27)
[2024-06-29 10:05] LABS: Hematocrit 24.1 % (41.0-53.0)
[2024-06-29 12:00] VITALS: BP 97/65; PULSE 68; RESP 17; TEMP 36.6; O2SAT 95
[2024-06-29 13:26] VITALS: BMI 24.0
--- NOTE | 2024-06-29 15:11 | ESDS_ITS ---
<Statement entered by Harvinder Tanner MD - 06/29/24 18:44> I saw and examined the patient, and I agree with current management stated by Dr Yesica MD,PGY1. Plan of care was discussed with the attending physician and resident physician. Disclaimer: Despite multiple revisions, due to the dictation software being used, the document bellow may not be free of grammatical errors including phonetic/typographic errors. However, this does not deter from our commitment to providing health care in the patient's best interest in mind. Dr. Ciro MD, PGY 2 Planned Discharge Date 06/29/24 DS: Providers Provider Date of admission: 06/24/24 16:14 Primary care physician: Physician No Primary/Family Admitting Provider: Starr Matos MD Attending Provider on Admission: Prateek Amador DO Consults: 06/24/24 15:01 Consult to Gastroenterology Stat Comment: Consulting Provider: Sabine Mendoza Attending Provider on DC: Prateek Amador DO Discharging Provider: Pan Robert MD DS: Diagnosis Problem List Completed Was Problem List Reviewed/Reconciled?: Yes Hospital Course Hospital Course Hospital course: 44 y/o M without significant PMHx presented to ED with chief complaint of dark tarry stools x 3 days. Patient also noted occasional red rectal bleeding. Patient had similar symptoms 1 year ago in [place], received an EGD at that time which showed ulcers. Patient notes that for the past 3 weeks he has been drinking 20 beers daily. Denied chest pain, shortness of breath, nausea, vomiting, weakness. Endorsed poor p.o. intake due to abdominal discomfort. CT showed significant colitis of descending and sigmoid colon. Patient was placed on octreotide drip and PPI. EGD was performed which showed Haley-Becker tear with significant pooling of blood in the stomach, treated with Endoclip. Patient started on Maalox and sucralfate, hemoglobin closely monitored. Hemoglobin stabilized over the next few days. Patient received colonoscopy which showed erythematous mucosa, biopsy, and hemorrhoids. Patient diet advanced to peptic ulcer diet which was tolerated well. Patient stable and cleared for discharge. Discharge planning: You have been started to follow medications: -Protonix 40 mg once daily -Carafate 1 g 4 times a day -Mag?Al Plus every 4 hours -Folic acid 1 mg twice a day -Vitamin B1 100 mg twice a day Please follow-up with PCP in 1-2 weeks Please follow-up with GI outpatient Diagnoses: #Haley-Becker Tear #Colitis #Alcohol use disorder #Transaminitis, improving Plan of care discussed with senior resident Dr. Tanner PGY?[address] Amador. Pan Robert MD PGY-1 Time Spent with Patient Time attestation: Total time spent providing and/or coordinating discharge services: Exam Vital Signs Temp Pulse Resp BP Pulse Ox O2 Del Method O2 Flow Rate 97.9 F 68 17 97/65 95 Room Air 3 06/29/24 12:00 06/29/24 12:00 06/29/24 12:00 06/29/24 12:06/29/24 12:06/29/24 12:00 06/28/24 20:35 Narrative Exam PE: Gen: Well-developed and well-nourished. HEENT: NCAT, PERRLA, EOMI, MMM. Scleral icterus. CVS: normal S1 and S2. RRR. No M/R/G. Resp: CTA B/L. No rhonchi, rales, crackles or wheezing. Abd: No abdominal distention, no abdominal tenderness. MSK: Good ROM in BUE & BLE. No edema or rash. Neuro: CN II-XII grossly intact. Strength 5/5 in BUE & BLE. Alert and oriented x3. Psych: appropriate mood and affect. Discharge Plan Plan Patient Disposition: HOME (Self Care) Disposition Comment: Stable for admit Care Plan Goals: You have been started to follow medications: -Protonix 40 mg once daily -Carafate 1 g 4 times a day -Mag?Al Plus every 4 hours -Folic acid 1 mg twice a day -Vitamin B1 100 mg twice a day Please follow-up with PCP in 1-2 weeks Please follow-up with GI outpatient Prescriptions/Referrals Prescriptions/Med Rec: New folic acid 1 mg Tablet 1 mg PO BID 30 Days Qty: 60 0RF thiamine mononitrate (vit B1) 100 mg Tablet 100 mg PO BID Qty: 30 0RF sucralfate [Carafate] 1 gram tablet 1 g PO QID 60 Days Qty: 240 0RF alum-mag hydroxide-simeth [Mag-Al Plus] 200-200-20 mg/5 mL Suspension 15 ml PO Q4HR 30 Days Qty: 3000 0RF pantoprazole [Protonix] 40 mg tablet,delayed release (DR/EC) 40 mg PO BID 30 Days Qty: 60 0RF Referrals: Sabine Mendoza MD [Physician] - No Primary/Family,Physician [Primary Care Provider] - Patient/Caregiver Discharge Instructions Discharge Activity: activity as tolerated Education Materials: Bleeding Gastrointestinal, Upper GI Endoscopy, Alcoholism Resources, Alcoholism: Getting Help Print Language: Welsh Stand Alone Forms: Carlita Award Info., Patient Portal Info Letter Discharge Order Discharge Orders: Discharge (Routine); Ordered 06/29/24 Ordered By: Harvinder Tanner Quality Discharge Quality Measures VTE prophylaxis MD Attestestation MD Attestation I have discussed and was present for the essential components of the discharge history, physical examination, diagnosis, and discharge treatment plan with the resident. I agree with the patient's discharge care as documented by the resident and amended herein by me. Adam Amador, . The patient understood all discharge instructions, all questions were answered satisfactorily. The patient was instructed to return to the Emergency Department is symptoms worsened or persisted. Patient will be discharged on PPI for 60 days per GI recommendations, will need to follow-up with PCP within 7 to 10 days of discharge. Alcohol cessation discussed at length with the patient, he understood. Patient stable, afebrile, tolerating p.o. intake and ambulatory at time of discharge home. Although this document has been carefully reviewed, there may still be some phonetic and other typographical errors. These errors are purely grammatical due to imperfections in the software program and should not be construed in any way to compromise the substance of the patient's medical care during this visit.
--- NOTE | 2024-06-29 20:28 | PD.IMPROG ---
Documentation for date of: 06/29/24 Subjective Subjective Interval history: Late entry for the note Case discussed with internal medicine team Okay to discharge patient home to be followed by the PCP Avoid NSAIDs and aspirin No evidence of inflammatory bowel disease on the colonoscopy Endoscopic intervention for the Haley-Becker tear is working very well and patient has not bled Exam Vital Signs Temp Pulse Resp BP Pulse Ox O2 Del Method O2 Flow Rate 97.9 F 68 17 97/65 95 Room Air 3 06/29/24 12:00 06/29/24 12:00 06/29/24 12:00 06/29/24 12:00 06/29/24 12:00 06/29/24 12:00 06/28/24 20:35 Objective Labs 06/29/24 09:20 06/29/24 05:32 Labs: Laboratory Results - last 24 hr 06/29/24 06/29/24 05:32 09:20 WBC 5.2 RBC 2.38 L Hgb 7.5 L 8.0 L Hct 22.0 L 24.1 L MCV 92 MCH 31.5 MCHC 34.1 RDW Std Deviation 43.8 Plt Count 229 D Neut % (Auto) 58 Lymph % (Auto) 27 [place] % (Auto) 11 Eos % (Auto) 3 Baso % (Auto) 1 Neut # (Auto) 3.0 Lymph # (Auto) 1.4 [place] # (Auto) 0.6 Eos # (Auto) 0.2 Baso # (Auto) 0.1 Immature Gran # (Auto) 0.03 H Absolute Nucleated RBC 0.00 Immature Gran % 1 H Nucleated RBC % 0 Sodium 137 Potassium 3.5 Chloride 101 Carbon Dioxide 30.1 Anion Gap 6 L BUN 6 L Creatinine 0.7 Estim Creat Clear Calc 124.1 eGFR > 60 BUN/Creatinine Ratio 9 L Glucose 103 Calculated Osmolality 271 L Calcium 8.9 Corrected Calcium 9.0 Phosphorus 4.4 Magnesium 2.0 Total Bilirubin 0.7 AST 56 H ALT 64 H Alkaline Phosphatase 68 Total Protein 6.1 Albumin 3.9 Globulin 2.2 L Albumin/Globulin Ratio 1.8 Impressions Impression: # Haley-Becker tear status post endoscopic intervention with placement of endoclips patient doing well # No evidence of inflammatory bowel disease or colonoscopy As under HPI Assessment & Plan A&P Narrative # Melena # Hematochezia # Abnormal CT scan of the abdomen pelvis showing inflammatory changes in the region of descending colon sigmoid colon and rectum # Abnormal liver functions are secondary to alcohol-related liver disease and fatty liver Plan Case discussed with the Emergency room physician Octreotide infusion at 50 mcg/h after loading dose of 50 mcg IV Protonix 40 mg every 12 hours N.p.o. midnight tonight Serial CBC Fiberoptic esophagogastroduodenoscopy with possible therapeutic intervention possible biopsy under intravenous moderate sedation tentatively scheduled for tomorrow Because of the CT scan abnormalities patient will also need a fibrotic colonoscopy prior to discharge to rule out any evidence of inflammatory bowel disease or ischemic colitis Thank you once again for the opportunity to participate in the care of this patient Time Spent With Patient Time: Total time spent is greater than 50% in coordination of care (as documented) at patient's floor/unit and/or counseling patient:
== END 2024-06-29 15:52 | disposition home or self-care (01) | DRG 242 ==
LOC: SERX 15:56 → SERHOLD 17:14 → S3SX 19:19 → S3NX 06-25 20:20
PROVIDERS: Physician Assistant; Specialist; Student in an Organized Health Care Education/Training Program; Admitting Provider Student in an Organized Health Care Education/Training Program; Emergency Provider Emergency Medicine; Visit Provider Student in an Organized Health Care Education/Training Program
PROC: 0W3P8ZZ Control Bleeding in Gastrointestinal Tract, Via Natural or Artificial Opening Endoscopic (ICD-10-PCS; CPT 43239; principal; 2024-06-25 12:15)
PROC: 0DJD8ZZ Inspection of Lower Intestinal Tract, Via Natural or Artificial Opening Endoscopic (ICD-10-PCS; CPT 45378; principal; 2024-06-28 19:30)
DX: K22.6 Gastro-esophageal laceration-hemorrhage syndrome (principal); K76.0 Fatty (change of) liver, not elsewhere classified; Y90.0 Blood alcohol level of less than 20 mg/100 ml; K52.9 Noninfective gastroenteritis and colitis, unspecified; K64.9 Unspecified hemorrhoids; F10.10 Alcohol abuse, uncomplicated; D62 Acute posthemorrhagic anemia; K70.9 Alcoholic liver disease, unspecified
CPT/HCPCS: 36415; 74177; 76705; 80053; 80061; 80320; 81001; 83036; 83690; 83735; 84100; 84443; 85014; 85018; 85025; 85610; 86850; 86900; 86901; 86923; 93225; 99285; A4649; J1200; J2175; J2250; J2354; J2470; J3010; J3475; J7030; J7050; Q9967; A9270; G0480